=== PATIENT | male | born 1950 | race Caucasian/White ===

== ENCOUNTER 2018-06-18 13:15 | Emergency (ER) | payer OTHER ==
[~2018-06-18] VITALS: Ht 177.8 cm; Wt 72.6 kg
[~2018-06-18 13:15] MED LIST: ALBU4; Keflex500 MG PO; LEVO750 PO; LEVSOD100 PO; Percocet 5-3251 EACH PO
[2018-06-18 14:11] LABS: BASOPHILS ABSOLUTE AUTO 0.08 K/mm3 (0.00-0.23); BASOPHILS PERCENT AUTO 1 % (0-2); EOSINOPHILS ABSOLUTE AUTO 0.26 K/mm3 (0.00-0.68); EOSINOPHILS PERCENT AUTO 3 % (0-6); Hematocrit 44.4 % (37.0-53.0); Hemoglobin 14.6 g/dL (13.5-17.5); IMMATURE GRAN ABSOLUTE AUTO 0.01 K/mm3 (0.00-0.10); IMMATURE GRAN PERCENT AUTO 0 % (0-1); LYMPHOCYTES ABSOLUTE AUTO 0.53 K/mm3 (0.84-5.20); LYMPHOCYTES PERCENT AUTO 6 % (21-46); MONOCYTES ABSOLUTE AUTO 0.34 K/mm3 (0.16-1.47); MONOCYTES PERCENT AUTO 4 % (4-13); Mean Corpuscular HGB Conc 32.9 g/dL (31.5-36.5); Mean Corpuscular Volume 88 fL (80-100); Mean Platelet Volume 9.9 fL (9.1-12.4); NEUTROPHILS ABSOLUTE AUTO 7.51 K/mm3 (1.96-9.15); NEUTROPHILS PERCENT AUTO 86 % (41-73); Platelet Count 262 K/mm3 (150-400); RDW Coefficient Variation 13.5 % (11.7-14.2); RDW Standard Deviation 43.4 fL (35.1-46.3); Red Blood Cell Count 5.04 M/mm3 (4.30-5.90); White Blood Cell Count 8.73 K/mm3 (4.00-11.30)
[2018-06-18 14:38] LABS: Alanine Aminotransfer (ALT/SGP 13 U/L (12-78); Albumin, Blood 3.5 g/dL (3.4-5.0); Albumin/Globulin Ratio 0.8 (0.8-1.8); Alk Phos 68 U/L (50-136); Anion Gap 7 mmol/L (6-16); Aspartate Aminotrans (AST/SGOT 8 U/L (12-37); Bilirubin, Total 0.5 mg/dL (0.1-1.0); Blood Urea Nitrogen 11 mg/dL (8-24); Bun/Creatinine Ratio 16.4 (12.0-20.0); CO2, Blood 27 mmol/L (21-32); Calcium, Blood 8.7 mg/dL (8.5-10.1); Chloride, Blood 106 mmol/L (98-108); Creatinine, Blood 0.67 mg/dL (0.60-1.20); Globulin, Blood 4.2 g/dL (2.2-4.0); Glomerular Filtration Rate >60 (60-); Glucose, Blood 101 mg/dL (70-99); Potassium, Blood 4.3 mmol/L (3.5-5.5); Sodium, Blood 140 mmol/L (136-145); Total Protein, Blood 7.7 g/dL (6.4-8.2)
[2018-06-18] MEDS ORDERED: THYR60 PO (17:09)
[2018-06-18] MEDS ORDERED: Zithromax250 MG PO (18:13)
== END 2018-06-18 18:36 | disposition home or self-care (01) ==
LOC: ER 13:15
PROVIDERS: Physician Assistant
DX: J98.19 Other pulmonary collapse (principal); Z79.899 Other long term (current) drug therapy; Z87.891 Personal history of nicotine dependence
CPT/HCPCS: 71046; 80053; 84145; 85025; 93005; 93010; 99284-25

== ENCOUNTER 2018-12-15 09:51 | Inpatient (IN) | payer MEDICARE ==
[~2018-12-15] VITALS: Ht 180.3 cm; Wt 70.8 kg
[~2018-12-15 09:51] MED LIST changes: +THYR60 PO; +Zithromax250 MG PO
[2018-12-15 10:44] LABS: Hematocrit 37.1 % (37.0-53.0); Hemoglobin 11.9 g/dL (13.5-17.5); Mean Corpuscular HGB 33.3 pg (26.0-34.0); Mean Corpuscular HGB Conc 32.1 g/dL (31.5-36.5); Mean Platelet Volume 9.8 fL (9.1-12.4); Platelet Count 171 K/mm3 (150-400); RDW Coefficient Variation 16.4 % (11.7-14.2); RDW Standard Deviation 64.3 fL (35.1-46.3); Red Blood Cell Count 3.57 M/mm3 (4.30-5.90); White Blood Cell Count 17.05 K/mm3 (4.00-11.30)
[2018-12-15 10:53] LABS: Alanine Aminotransfer (ALT/SGP 26 U/L (12-78); Albumin, Blood 2.3 g/dL (3.4-5.0); Albumin/Globulin Ratio 0.5 (0.8-1.8); Alk Phos 167 U/L (50-136); Anion Gap 7 mmol/L (6-16); Aspartate Aminotrans (AST/SGOT 17 U/L (12-37); Bilirubin, Total 0.8 mg/dL (0.1-1.0); Blood Urea Nitrogen 16 mg/dL (8-24); Bun/Creatinine Ratio 23.7 (12.0-20.0); CO2, Blood 35 mmol/L (21-32); Calcium, Blood 8.7 mg/dL (8.5-10.1); Chloride, Blood 99 mmol/L (98-108); Creatinine, Blood 0.68 mg/dL (0.60-1.20); Globulin, Blood 4.5 g/dL (2.2-4.0); Glomerular Filtration Rate >60 (60-); Glucose, Blood 138 mg/dL (70-99); Potassium, Blood 3.2 mmol/L (3.5-5.5); Sodium, Blood 141 mmol/L (136-145); Total Protein, Blood 6.8 g/dL (6.4-8.2)
[2018-12-15 10:58] LABS: Mean Corpuscular Volume 104 fL (80-100)
--- NOTE | 2018-12-15 11:23 | NUR ---
Patient is lying in bed and alert. Patient struggles to speak and only says a few words at a time. Patient affirmed that he would like a prayer. I gladly provided prayer. I sat with patient and provided a calming presence. I also went out to the waiting room and sat with patient's spouse, Nila. I had her go through the events of the morning that led to 12-17- being called and what communication she had from the hospital staff to this moment. She had heard nothing and is axnious to be with her . I go back to patient's room and ask if it is ok to bring Nila to patient and it is affirmed. I bring spouse and their daughter pat back to patient. They thank me for the time and care.
[2018-12-15 11:26] LABS: BAND PERCENT MAN 20 % (0-8); BASOPHILS PERCENT MAN 0 % (0-2); EOSINOPHILS PERCENT MAN 0 % (0-6); LYMPHOCYTES ABSOLUTE MAN 0.68 K/mm3 (0.84-5.20); LYMPHOCYTES PERCENT MAN 4 % (21-46); MONOCYTES PERCENT MAN 0 % (4-13); NEUTROPHILS ABSOLUTE MAN 16.36 K/mm3 (1.96-9.15); SEG NEUTROPHILS PERCENT MAN 76 % (41-73); TOTAL CELLS COUNTED 100
[2018-12-15 11:37] LABS: International Normalized Ratio 1.21; Prothrombin Time Results 12.6 Sec (9.7-11.5)
[2018-12-15] MEDS ORDERED: ARMOUR THYROID PO (13:53)
[2018-12-15] MEDS ORDERED: Sleep Aid25 M1 PO (13:54)
[2018-12-15] MEDS ORDERED: FORMULA 303 PO (13:54)
[2018-12-15] MEDS ORDERED: THERA1 EACH PO (13:54)
--- NOTE | 2018-12-15 14:02 | NUR ---
TRANSFERED FROM ER TO [facility] SAT DOWN TO 85 PLACED ON 2 LITERS O2 SAT CLIMBING AND CURRENTLY AT 90%. History, Chart, Medications and Allergies reviewed before start of procedure.Patient confirms NPO status and agrees with scheduled surgery. History, Chart, Medications and Allergies reviewed before start of procedure.
--- NOTE | 2018-12-15 14:20 | NUR ---
RAISED 02 UP TO 4 LITERS SAT HOVERING AT 90% PRIOR TO INCREASE
--- NOTE | 2018-12-15 15:39 | NUR ---
12/15/18 1539 Selam Boyd PT ON SCHEDULED ANTIBIOTIC
--- NOTE | 2018-12-15 18:27 | NUR ---
PARTIAL REPORT FROM GALE PAZ. PT WILL BE COMING TO ICU 13
--- NOTE | 2018-12-15 18:52 | NUR ---
ADMITTED TO ICU 13 AT 1840. REPORT FROM ANESTHESIOLOGIST.
--- NOTE | 2018-12-15 19:01 | NUR ---
LEFT MSG RO DR. LACY
--- NOTE | 2018-12-15 19:15 | NUR ---
ASSUMED PT CARE FROM GALE VENTURA PT RECENTLY ARRIVED FROM OR S/P COLECTOMY SECONDARY TO PERFORATED BOWEL R/T DIVERTICULITIS. PT REMAINS UNRESPONSIVE R/T SEDATIVE MEDICATIONS ADMINISTERED IN OR. PT IS INTUBATED WITH VENT SETTINGS: AC 14, TV 450, PEEP 8, FIO2 100%. PER REPORT PT HAS BEEN GETTING PROGRESSIVELY WORSE WITH BLOOD PRESSURE; NEOSYNEPHRINE WAS USED DURING SURGERY. NO FLUIDS CURRENTLY RUNNING CONFLICTING FLUIDS NEEDED CLARIFIED BY TEACHER BALLET WHO HAD BEEN CONSULTED ON CASE. NO FAMILY AT BEDSIDE. PT'S BLOOD PRESSURE QUICKLY STARTED TO DROP AND PT WAS VERY HYPOTENSIVE. DR. GARCIA CALLED TO BEDSIDE WHO ORDERED TO RESTART NEOSYNEPHRINE VIA PERIPHERAL WHILE WE CALLED FOR CONSENT FOR CENTRAL LINE PLACEMENT.
--- NOTE | 2018-12-15 19:22 | NUR ---
DR. GARCIA ON THE PHONE WITH OBTAINING VERBAL CONSENT FOR CENRAL LINE PLACEMENT
--- NOTE | 2018-12-15 19:28 | NUR ---
DR. GARCIA AT BEDSIDE PREPPING FOR CENRAL LINE PLACEMENT
--- NOTE | 2018-12-15 19:53 | NUR ---
CENTRAL LINE PROCEDURE COMPLETE; CXR ORDERED
--- NOTE | 2018-12-15 19:59 | NUR ---
CXR COMPLETE; PENDING CONFIRMATION BY DR. GARCIA
--- NOTE | 2018-12-15 20:48 | NUR ---
DR. GARCIA CHECKED CXR AND PULLED CENTRAL LINE OUT BY 1CM AND CONFIRMED THAT LINE WAS OKAY TO USE.
[2018-12-15 21:00] LABS: Source, Urine Clean Catch
[2018-12-15 21:03] LABS: Bilirubin, Urine Neg (Neg); Blood, Urine 1+ (Neg); Glucose Qualitative, Urine Neg (Neg); Ketones, Urine Neg (Neg); Leukocyte Esterase, Urine Neg (Neg); Nitrite, Urine Neg (Neg); Protein, Urine 1+ (Neg); Specific Gravity, Urine 1.005 (1.003-1.022); Urobilinogen, Urine NORM (Normal)
[2018-12-15 21:06] LABS: Appearance, Urine Clear (Clear); Color, Urine Yellow (P-Yellow)
[2018-12-15 21:13] LABS: Bacteria Rare /hpf; Red Blood Cells, Urine 0-2 /hpf (0-2); Squamous Epithelial Cells Rare /hpf (Few); White Blood Cells, Urine Rare /hpf (0-5)
[2018-12-15 21:19] LABS: Hematocrit 35.2 % (37.0-53.0); Hemoglobin 11.4 g/dL (13.5-17.5); Mean Corpuscular HGB 33.4 pg (26.0-34.0); Mean Corpuscular HGB Conc 32.4 g/dL (31.5-36.5); Mean Corpuscular Volume 103 fL (80-100); Platelet Count 160 K/mm3 (150-400); RDW Coefficient Variation 16.8 % (11.7-14.2); RDW Standard Deviation 64.3 fL (35.1-46.3); Red Blood Cell Count 3.41 M/mm3 (4.30-5.90)
[2018-12-15 21:35] LABS: Anion Gap 9 mmol/L (6-16); Blood Urea Nitrogen 18 mg/dL (8-24); Bun/Creatinine Ratio 23.2 (12.0-20.0); CO2, Blood 30 mmol/L (21-32); Calcium, Blood 7.4 mg/dL (8.5-10.1); Chloride, Blood 106 mmol/L (98-108); Creatinine, Blood 0.78 mg/dL (0.60-1.20); Glomerular Filtration Rate >60 (60-); Glucose, Blood 156 mg/dL (70-99); Potassium, Blood 3.6 mmol/L (3.5-5.5); Sodium, Blood 145 mmol/L (136-145)
[2018-12-15 21:58] LABS: BAND PERCENT MAN 10 % (0-8); BASOPHILS PERCENT MAN 0 % (0-2); EOSINOPHILS PERCENT MAN 0 % (0-6); LYMPHOCYTES ABSOLUTE MAN 0.24 K/mm3 (0.84-5.20); LYMPHOCYTES PERCENT MAN 1 % (21-46); MONOCYTES ABSOLUTE MAN 0.24 K/mm3 (0.16-1.47); MONOCYTES PERCENT MAN 1 % (4-13); SEG NEUTROPHILS PERCENT MAN 88 % (41-73); TOTAL CELLS COUNTED 100
--- NOTE | 2018-12-15 22:06 | NUR ---
DR. GARCIA CALLED FOR AN UPDATE ON PT. NEW ORDERS TO STOP NEOSYNEPHRINE AND START LEVOPHED; TITRATE TO EFFECT TO KEEP MAP GREATER THAN 65.
[2018-12-16 03:56] LABS: BASOPHILS ABSOLUTE AUTO 0.04 K/mm3 (0.00-0.23); BASOPHILS PERCENT AUTO 0 % (0-2); Hematocrit 33.6 % (37.0-53.0); Hemoglobin 10.7 g/dL (13.5-17.5); LYMPHOCYTES PERCENT AUTO 2 % (21-46); MONOCYTES ABSOLUTE AUTO 0.37 K/mm3 (0.16-1.47); MONOCYTES PERCENT AUTO 2 % (4-13); Mean Corpuscular HGB 32.8 pg (26.0-34.0); Mean Corpuscular HGB Conc 31.8 g/dL (31.5-36.5); Mean Corpuscular Volume 103 fL (80-100); Mean Platelet Volume 10.3 fL (9.1-12.4); Platelet Count 154 K/mm3 (150-400); RDW Coefficient Variation 16.8 % (11.7-14.2); RDW Standard Deviation 64.6 fL (35.1-46.3); Red Blood Cell Count 3.26 M/mm3 (4.30-5.90); White Blood Cell Count 24.88 K/mm3 (4.00-11.30)
[2018-12-16 04:08] LABS: EOSINOPHILS PERCENT AUTO 0 % (0-6); IMMATURE GRAN ABSOLUTE AUTO 0.16 K/mm3 (0.00-0.10); IMMATURE GRAN PERCENT AUTO 1 % (0-1); NEUTROPHILS ABSOLUTE AUTO 23.91 K/mm3 (1.96-9.15); NEUTROPHILS PERCENT AUTO 96 % (41-73)
[2018-12-16 04:32] LABS: Alanine Aminotransfer (ALT/SGP 16 U/L (12-78); Albumin, Blood 1.5 g/dL (3.4-5.0); Albumin/Globulin Ratio 0.4 (0.8-1.8); Alk Phos 99 U/L (50-136); Anion Gap 6 mmol/L (6-16); Aspartate Aminotrans (AST/SGOT 13 U/L (12-37); Bilirubin, Total 0.6 mg/dL (0.1-1.0); Blood Urea Nitrogen 20 mg/dL (8-24); Bun/Creatinine Ratio 19.8 (12.0-20.0); CO2, Blood 30 mmol/L (21-32); Calcium, Blood 7.1 mg/dL (8.5-10.1); Chloride, Blood 107 mmol/L (98-108); Creatinine, Blood 1.01 mg/dL (0.60-1.20); Globulin, Blood 3.6 g/dL (2.2-4.0); Glomerular Filtration Rate >60 (60-); Glucose, Blood 171 mg/dL (70-99); Magnesium, Blood 1.5 mg/dL (1.6-2.4); Phosphorus, Blood 3.6 mg/dL (2.5-4.9); Potassium, Blood 3.6 mmol/L (3.5-5.5); Sodium, Blood 143 mmol/L (136-145); Total Protein, Blood 5.1 g/dL (6.4-8.2); Triglycerides 97 mg/dL (30-160)
--- NOTE | 2018-12-16 05:16 | NUR ---
SBT/SEDATION VACATION PT TITRATED DOWNT O 10MCG/KG/MIN ON THE PROPOFOL. VENT SETTINGS SWITCHED TO PRESSURE SUPPORT OF 10/22 WITH FIO2 40%. PT TOLERATED SBT WELL. NO DISTRESS NOTED, BLOOD PRESSURES STABLE WITH LEVOPHED TITRATED DOWN TO 8MCG/MIN, AND PT MANAGED TO PULL TIDAL VOLUMES GREATER THAN 300 THROUGHOUT. PT LEFT ON PRESSURE SUPPORT / AFTER SBT; HOWEVER, HE ONLY TOLERATED FOR A SHORT WHILE LONGER HE NODDED HIS HEAD "YES" TO BEING FATIGUED.
[2018-12-16 05:21] LABS: BAND PERCENT MAN 17 % (0-8); BASOPHILS PERCENT MAN 0 % (0-2); EOSINOPHILS PERCENT MAN 0 % (0-6); LYMPHOCYTES ABSOLUTE MAN 0.49 K/mm3 (0.84-5.20); LYMPHOCYTES PERCENT MAN 2 % (21-46); MONOCYTES ABSOLUTE MAN 0.24 K/mm3 (0.16-1.47); MONOCYTES PERCENT MAN 1 % (4-13); NEUTROPHILS ABSOLUTE MAN 24.13 K/mm3 (1.96-9.15); SEG NEUTROPHILS PERCENT MAN 80 % (41-73); TOTAL CELLS COUNTED 100
--- NOTE | 2018-12-16 06:14 | NUR ---
END OF SHIFT SUMMARY PT REMAINS INTUBATED AND SEDATED; VENT SETTINGS: AC 14, TV 450, PEEP 7, FIO2 40%. PROPOFOL TITRATED BACK TO 40MCG/KG/MIN AFTER SBT DUE TO PT BEING WIDE AWAKE AND UNCOMFORTABLE WITH PROPOFOL AT 30MCG/KG/MIN. PT IS ABLE TO OPEN EYES TO VERBAL STIMULI AND FOLLOW COMMANDS ADEQUATELY. PT HAS DENIED PAIN ALL SHIFT BY NODDING HIS HEAD "NO" WHEN ASKED. WOUND VAC REMAINS PATENT AND INTACT TO ABDOMEN. COLOSTOMY HASN'T HAD ANY OUTPUT THIS SHIFT, BUT STOMA REMAINS PINK AND MOIST. LEVOPHED IS CURRENTLY AT 8MCG/MIN. NS WITH 20MEQ KCL INFUSING AT 100MLS/HR. PT APPEARS COMFORTABLE AT THIS TIME; WILL CONTINUE TO MONITOR UNTIL REPORT IS HANDED OFF TO ONCOMING RN.
--- NOTE | 2018-12-16 09:51 | NUR ---
PT ASSESSED AT 0715. PT SEDATED ON 40MCG PROPOFOL FOR [facility]. PT GRIMACES AND MOVES HEAD ON SEDATION; SEDATION VAC GIVEN. PT AWOKE WITHIN 15MIN; ABLE TO FOLLOW COMMANDS AND NOD HEAD APPROPRIATELY; REACHED FRO ETT TUBE SEVERAL TIMES. DENIED PAIN W HEAD NOD BUT GRIMACES W ANY MOVEMENT AND LIGHT PALP. DR HALE IN AT 0800 TO ASSESS PT. OKAY TO START LOVENOX THIS AFTERNOON. LEAVE NG IN UNLESS PT ON VENT FOR MORE THAN 2-3 DAYS; THEN MAY SWITCH TO OG; OTHERWISE LEAVE NG IN. MIDLINE ABD INCISION COVERED W PREVENA WOUND VAC; NO DRAINAGE NOTED. LEFT MID COLOSTOMY BAG W SCANT SS FLUID, STOMA PINK AND HEALTHY APPEARING. BT'S ABSENT TO RLQ ONLY, OTHERWISE ACTIVE. LEVOPHED AT 8MCG. DR GARCIA IN THIS AM WELL DR SLOAN; SEE NEW ORDERS. PT TO STAY ON VENT TODAY.
--- NOTE | 2018-12-16 15:02 | NUR ---
EMELYN LASSITER PLACED UNDER SCD'S D/T EDEMA. LEVOPHED INCREASED TO 10MCG AFTER A FENT DOSE FOR PAIN. RECTAL TEMP PROBE PLACED EARLIER WITH A TMAX OF 100. DR GARCIA SPOKE WITH PT'S AND DAUGHTER; UPDATING THEM. PT REMAINS SEDATED ON 40MCG PROPOFOL. NO OUTPUT FROM COLOSTOMY NOTED.
--- NOTE | 2018-12-16 16:45 | NUR ---
INITIAL ASSESSMENT PATIENT INTUBATED AND SEDATED. PATIENT RESPONDING TO PAINFUL STIMULI. RECTAL TUBE IN PLACE SHOWING TEMP OF 99.7 DEGREES FAHRENHEIT. NO SIGNS OF PAIN NOTED. PATIENT SATTING 90% AND GREATER ON VENT SETTINGS OF AC 14, TV 450, PEEP 5, 35% FIO2. LUNGS CLEAR IN UPPER LOBES, DIMINISHED IN LOWER LOBES. BLOODY SPUTUM BEING SUCTIONED FROM ETT. PATIENT IN ST, HR IN THE LOW 100S. SBP 80S TO 90S ON LEVOPHED DRIP. ANTIEMBOLISM STOCKINGS IN PLACE. ABDOMEN TENDER WITH HYPOACTIVE BS. NG TO LIS, DRAINING BILE. COLOSTOMY TO LUQ- NO STOOL IN BAG. STOMA PINK AND BEEFY. VENTRAL WOUND VAC IN PLACE- NO DRAINAGE COLLECTED. JEAN IN PLACE DRAINING DARK YELLOW TO GREEN, CLOUDY URINE. PATIENT HAS SCATTERED BRUISING T/O. 1+ EDEMA TO BLES. 2+ EDEMA TO BILAT FEET. COCCYX REDDENED. SCAR TO R INNER THIGH. TPN STARTED AT 30 MLS/ HOUR, PROPOFOL AT 40 MCG/ KG/ MINUTE, LEVOPHED AT 10 MCG/ MINUTE. BED LOW, CALL LIGHT IN REACH. WILL CONTINUE TO MONITOR T/O SHIFT.
--- NOTE | 2018-12-16 18:38 | NUR ---
SHIFT SUMMARY PATIENT REMAINS UNCHANGED FROM THIS NURSE'S INITIAL ASSESSMENT SHORT TIME AGO. VITAL SIGNS STABLE. NO SIGNS OF PAIN. TPN INFUSING AT 55 MLS/ HOUR, PROPOFOL AT 40 MCG/ KG/ MINUTE AND LEVOPHED AT 10 MCG/ MINUTE. WILL BE GIVING REPORT TO ONCOMING SULFUR CHLORIDE OPERATOR NURSE SHORTLY.
--- NOTE | 2018-12-16 19:03 | NUR ---
ASSUMED PT CARE FROM GALE BETANCOURT. PT REMAINS INTUBATED AND SEDATED. PROPOFOL CURRENTLY AT 40MCG/KG/MIN. VENT SETTINGS: AC 14, TV 450, PEEP 5, FIO2 35%. TPN INFUSING AT GOAL OF 55MLS/HR. LEVOPHED AT 10MCG/MIN. AND NS TKO WITH ANTIBIOTICS. NG CONNECTED TO LOW INTERMITTENT SUCTION WITH GREEN BILE NOTED IN CANNISTER. IT APPEARS PT CONTINUES WITH MODERATE AMOUNTS OF THIN BLOOD TINGED SPUTUM. CENTRAL LINE TO RIGHT IJ REMAINS INTACT AND PATENT. JEAN CATHETER DRAINING TO GRAVITY. PT'S BILATERAL ARMS AND LEGS/FEET ARE EDEMATOUS, BUT ELEVATED ON PILLOWS. PT APPEARS COMFORTABLE AT THIS TIME; FAMILY AT BEDSIDE.
[2018-12-17 03:24] LABS: Hematocrit 27.5 % (37.0-53.0); Hemoglobin 8.8 g/dL (13.5-17.5); Mean Corpuscular HGB 32.8 pg (26.0-34.0); Mean Corpuscular Volume 103 fL (80-100); Mean Platelet Volume 10.7 fL (9.1-12.4); Platelet Count 119 K/mm3 (150-400); RDW Standard Deviation 64.2 fL (35.1-46.3); Red Blood Cell Count 2.68 M/mm3 (4.30-5.90); White Blood Cell Count 26.29 K/mm3 (4.00-11.30)
[2018-12-17 03:41] LABS: BAND PERCENT MAN 11 % (0-8); BASOPHILS PERCENT MAN 0 % (0-2); EOSINOPHILS PERCENT MAN 0 % (0-6); LYMPHOCYTES ABSOLUTE MAN 0.26 K/mm3 (0.84-5.20); LYMPHOCYTES PERCENT MAN 1 % (21-46); MONOCYTES ABSOLUTE MAN 0.52 K/mm3 (0.16-1.47); MONOCYTES PERCENT MAN 2 % (4-13); SEG NEUTROPHILS PERCENT MAN 86 % (41-73); TOTAL CELLS COUNTED 100
[2018-12-17 03:43] LABS: Alanine Aminotransfer (ALT/SGP 17 U/L (12-78); Albumin, Blood 1.4 g/dL (3.4-5.0); Albumin/Globulin Ratio 0.4 (0.8-1.8); Alk Phos 92 U/L (50-136); Anion Gap 6 mmol/L (6-16); Aspartate Aminotrans (AST/SGOT 10 U/L (12-37); Bilirubin, Total 0.4 mg/dL (0.1-1.0); Blood Urea Nitrogen 21 mg/dL (8-24); Bun/Creatinine Ratio 26.6 (12.0-20.0); CO2, Blood 31 mmol/L (21-32); Calcium, Blood 7.4 mg/dL (8.5-10.1); Chloride, Blood 112 mmol/L (98-108); Creatinine, Blood 0.79 mg/dL (0.60-1.20); Globulin, Blood 3.5 g/dL (2.2-4.0); Glomerular Filtration Rate >60 (60-); Glucose, Blood 229 mg/dL (70-99); Magnesium, Blood 1.8 mg/dL (1.6-2.4); Phosphorus, Blood 2.8 mg/dL (2.5-4.9); Potassium, Blood 3.5 mmol/L (3.5-5.5); Sodium, Blood 149 mmol/L (136-145); Total Protein, Blood 4.9 g/dL (6.4-8.2); Triglycerides 185 mg/dL (30-160)
--- NOTE | 2018-12-17 04:35 | NUR ---
SEDATION VACATION/SBT PROPOFOL TITRATED DOWN TO 10MCG/KG/MIN AT 0315. PT ABLE TO OPEN EYES SPONTANEOUSLY AND FOLLOWS VERBAL COMMANDS APPROPRIATELY. PT NODDED HEAD TO GENERALIZED PAIN; MEDICATED WITH 25MCG OF FENTANYL, WHICH WAS EFFECTIVE. SWITCHED TO PRESSURE SUPPORT 10/20 WITH FIO2 35%. RR 18-22, TV GREATER THAN 300 AND VITAL SIGNS REMAINED STABLE WITH LEVOPHED AT 9MCG/MIN. PT REMAINED ON PRESSURE SUPPORT POST TRIAL AND HAS BEEN TOLERATING ADEQUATELY.
--- NOTE | 2018-12-17 05:33 | NUR ---
END OF SHIFT SUMMARY PT HAS REMAINED INTUBATED AND SEDATED. VENT SETTINGS THROUGH MOST OF NIGHT WERE AC 14, TV 450, PEEP 5, FIO2 35%. PROPOFOL AT 40MCG/KG/MIN MOST OF NIGHT UP UNTIL SEDATION VACATION, SEE NOTE. LUNG SOUNDS REMAIN CLEAR, BUT DIMINISHED T/O TO RIGHT MIDDLE AND LOWER LOBES. PT HAS REMAINED IN SINUS TACH WITH HR 100-120'S. ABDOMEN REMAINS TENDER WITH WOUND VAC PATENT AND INTACT; HYPOACTIVE BOWEL TONES TO UPPER QUADRANTS WITH ABSENT TONES TO BILATERAL LOWER QUADRANTS. COLOSTOMY REMAINS WITH NO OUTPUT OR GAS TO POUCH. NG HOOKED TO LOW INTERMITTENT SUCTION WITH GREEN BILE NOTED IN CANNISTER. JEAN CATH REMAINS PATENT AND DRAINING TO GRAVITY; CLEAR YELLOW WITH GREEN TINGE NOTED TO URINE. PT REMAINS EDEMATOUS TO BUE'S AND BLE'S. PT REMAINS ON PRESSURE SUPPORT /; FIO2 35% POST WEAN. WILL CONTINUE TO MONITOR UNTIL REPORT IS HANDED OFF TO ONCOMING RN.
--- NOTE | 2018-12-17 09:51 | NUR ---
PT ASSESSED AT 0730 THIS AM. PT AWAKE ON PROPOFOL AT 10MCG FOR MECH VENT. PT DENIED C/O DISCOMFORT. PT VISIABLY UPSET; TEARS IN EYES, RESTRAINED HAND "SHOOED" ME AWAY. PT EDUCATED AND COMFORTED WITH MINIMAL EFFECT. PT ON PS [address] GARCIA IN AT 0800. PT PLACED ON SPONT W PS OF 0; PT TOLERATED WELL AND EXTUBATED AT 0915 ON 3L O2 VIA N/C. PT DEMANDED WATER AND BECAME ANGRY HITTING FIST ON BED WHEN EXPLINATION OF WHY WATER COULDNT BE GIVEN YET. FIRM BOUNDRIES SET WITH EXPLANATION/COMPASSION. PT REMAINS TEARFUL. DAUGHTER AT BEDSIDE NOW. NG REMAINS TO LIS, BT'S HYPOACTIVE TO ABSENT, COLOSTOMY BAG W/O STOOL/EMPTY, STOMA PINK AND HEALTHY APPEARING. LEVOPHED AT 8MCG WILL TITRATE DOWN TOLERATED TO KEEP MAP >65. DR HALE IN THIS AM TO ASSESS PT WELL.
--- NOTE | 2018-12-17 15:03 | NUR ---
PT IN SLIGHTLY BETTER SPIRITS;LESS IRRITABLE. APPEARS TO BE STOIC, DECLINES PAIN MEDS AT TIMES, WHEN QUESTIONED FURTHER HE WILL ADMIT THAT HIS PAIN IS 9+/10 TO ABD AND BOTTOM. PT WAS ALLOWED ICE CHIPS AND POPSICLES PER DR HALE. POSSIBLE SILENT ASPIRATION OF POPSICLE. PT HAS VERY WEAK COUGH. IS AND FLUTTER VALVE GIVEN WITH INSTRUCTIONS. POPSICLES TO BE HELD UNTIL PT HAS STRONGER COUGH; THIS EXPLAINED TO PT, PT MOTIVATED TO USE IS/FLUTTER. LEVOPHED GTT OFF AT 1300; BP REMAINS STABLE OF LEVAPHED. D5W STARTED AT 75CC FOR INCREASED NA++.
--- NOTE | 2018-12-17 16:00 | NUR ---
PALLIATIVE CARE IN TO SEE PTS . PTS TEARFUL, REQUESTS MORE INFORMATION REGARDING ADVANCE DIRECTIVE/POLST.
--- NOTE | 2018-12-17 16:58 | NUR ---
PT W C/O SOB AROUND 1530. LUNGS COARSE, PT UNABLE TO COUGH EFFICIANTLY, SATS 90-91% ON 3L, HR 120. RT CALLED TO BEDSIDE. PT NT SX'D DOWN RIGHT NARE. PT TOLERATED WELL WITH LITTLE GAG. LARGE AMT OF ORANGE/PINK SPUTUM SUCTIONED. PT DENIES SOB AFTER SX'ING AND SATS INCREASED TO 93%. DR GARCIA CALLED AND GIVEN UPDATE; WILL HOLD PO FOR TODAY. DR GARCIA NOTIFIED OF POSITIVE BLOOD CX WELL; TIFFANYO STARTED. PT SOMEWHAT CONFUSED. THOUGHT HE WAS IN [place], LOOKED AT ME LATER AND STATED IN A CONCERNED VOICE THAT HE WAS NOT IN THE RIGHT PLACE. PT REORIENTED AND SEEMED SATISFIED WITH INFORMATION.
--- NOTE | 2018-12-17 16:59 | NUR ---
Initial Visit: Pt is alert, eating a popsicle. He denies pain. He doesn't want to discuss hospice. Later Entry: Nurse called to have palliative care come see pt's family. Pt is in the room by himself on arrival, his family is in the ICU waiting room. Reviewed current illness with Nila, pt's , and Aria, pt's daughter. They are concerned about pt. Both are somewhat tearful. Reviewed advance directive and POLST forms. Encouraged to discuss advance directive. They do not know if he would like to fight this a while longer or if he would want hospice services at any time. 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 Since he stopped working, pt has been increasingly irritable and depressed. Offered to help them have conversation with the pt. They believe that he would respond better if they presented it to him themselves. Pt's son gets into town tomorrow and that would be a good time to talk. Card provided, POLST and advance directive left for them to review and present to pt for discussion. No other concerns at this time. Will remain available.
--- NOTE | 2018-12-17 19:12 | NUR ---
ASSUMED PT CARE FROM STEPHANIE RN AND DAVID RN PT SITTING UPRIGHT IN BED RESTING. PER REPORT PT DIDN'T SLEEP MUCH TODAY, BUT DOZED OFF AND ON T/O THE DAY. PT OPENED EYES TO VERBAL STIMULI AND WAS ABLE TO NOD HEAD YES/NO TO QUESTIONS. PT APPEARS ALERT AND ORIENTED TO SELF, SITUATION, BUT CONFUSED TO PLACE/TIME. VERY FLAT EFFECT; HOWEVER, PER REPORT PT HAS BEEN VERY DEPRESSED AND IRRITABLE T/O MOST OF SHIFT. PER PALLIATIVE NOTE IT APPEARS THIS HAS BEEN PT'S NEW BASELINE SINCE HE HASN'T BEEN ABLE TO WORK ANY LONGER SECONDARY TO HIS DISEASE PROCESSES. PT NOTED TO BE VERY SOFT SPOKEN AND PREFERS TO USE HAND GESTURES INSTEAD OF VERBALIZING NEEDS; WILL ATTEMPT TO UNDERSTAND PT'S NEEDS AND ENCOURAGE HIM TO VERBALIZE NEEDS NEEDED. NO FAMILY AT BEDSIDE AT THIS TIME. PT STATES HE IS VERY TIRED AND WOULD JUST LIKE TO REST AT THIS TIME. CALL LIGHT LEFT WITHIN REACH, BUT WILL CONTINUE FREQUENT VISUAL CHECKS TO ENSURE NEEDS ARE BEING MET. CENTRAL LINE REMAINS TO RIGHT IJ; TPN INFUSING AT 55MLS/HR, D5W AT 75ML/HR, LEVOPHED ON STANDBY, AND ZOSYN INFUSING AT THIS TIME. PT DENIES ANY PAIN. WOUND VAC APPEARS INTACT AND PATENT. COLOSTOMY INTACT WITH SCANT AMOUNT OF FORMED BROWN STOOL THAT APPEARS SOFT IN TEXTURE; STOMA IS PINK AND MOIST. BOWEL TONES ARE ACTIVE X3 QUADRANTS; ABSENT TO LLQ. JEAN CATHETER IS PATENT AND DRAINING TO GRAVITY; CLEAR, YELLOW. PT REMAINS EDEMATOUS WITH EXTREMITIES ELEVATED ON PILLOWS. PT IS VERY WEAK, BUT ABLE TO MOVE ALL EXTREMITIES. NG TUBE CONTINUES TO LOW INTERMITTENT SUCTION WITH GREEN, BILE NOTED TO CANNISTER. DENIES ANY PAIN AT THIS TIME AND JUST STATES THAT HE IS UNCOMFORTABLE AND "ACHY" DUE TO BEING IN BED FOR AN EXTENDED PERIOD OF TIME. PT REQUESTED WATER; EXPLAINED HIGH RISK OF CHOKING AND ASPIRATION SECONDARY TO CHOKING EVENT THAT TOOK PLACE WITH POPSICLE ON DAY SHIFT. EDUCATED PT THAT IT IS NORMAL AFTER EXTUBATION TO BE MORE WEAK WITH CLEARING SECRETIONS AND SWALLOWING; HOWEVER, WE WANT TO CONTINUE MAKING PROGRESS AND NOT END BACK UP INTUBATED. PT VERBALIZED UNDERSTANDING AND WAS AGREEABLE TO MOUTH SWAB. ST TO EVALUATE AND TREAT TOMORROW PER REPORT. WILL CONTINUE TO MONITOR AND NOTIFY PHYSICIAN OF ANY SIGNIFICANT CHANGES.
--- NOTE | 2018-12-17 20:40 | NUR ---
TOOTH FILLING AFTER PROVIDING ORAL CARE AND MOUTH SWABS PT PULLED OUT A SMALL UNKOWN PARTICLE FROM HIS MOUTH. UPON OBSERVATION OF UNKNOWN PARTICLE IT WAS NOTED TO BE A FILLING FROM PT'S BACK LEFT MOLAR. PT DENIED PAIN, WELL ANY SORT OF SENSITIVITY.
[2018-12-18 03:17] LABS: Hematocrit 24.6 % (37.0-53.0); Hemoglobin 7.7 g/dL (13.5-17.5); Mean Corpuscular HGB Conc 31.3 g/dL (31.5-36.5); Mean Platelet Volume 10.2 fL (9.1-12.4); Platelet Count 98 K/mm3 (150-400); RDW Standard Deviation 66.7 fL (35.1-46.3); Red Blood Cell Count 2.33 M/mm3 (4.30-5.90); White Blood Cell Count 20.96 K/mm3 (4.00-11.30)
[2018-12-18 03:18] LABS: Mean Corpuscular Volume 106 fL (80-100)
[2018-12-18 03:30] LABS: Anion Gap 6 mmol/L (6-16); Blood Urea Nitrogen 20 mg/dL (8-24); Bun/Creatinine Ratio 30.2 (12.0-20.0); CO2, Blood 32 mmol/L (21-32); Calcium, Blood 7.5 mg/dL (8.5-10.1); Chloride, Blood 113 mmol/L (98-108); Creatinine, Blood 0.66 mg/dL (0.60-1.20); Glomerular Filtration Rate >60 (60-); Glucose, Blood 159 mg/dL (70-99); Phosphorus, Blood 2.3 mg/dL (2.5-4.9); Potassium, Blood 3.8 mmol/L (3.5-5.5); Sodium, Blood 151 mmol/L (136-145)
[2018-12-18 03:40] LABS: BAND PERCENT MAN 7 % (0-8); BASOPHILS PERCENT MAN 0 % (0-2); EOSINOPHILS PERCENT MAN 0 % (0-6); LYMPHOCYTES ABSOLUTE MAN 0.41 K/mm3 (0.84-5.20); LYMPHOCYTES PERCENT MAN 2 % (21-46); MONOCYTES ABSOLUTE MAN 0.62 K/mm3 (0.16-1.47); MONOCYTES PERCENT MAN 3 % (4-13); NEUTROPHILS ABSOLUTE MAN 19.91 K/mm3 (1.96-9.15); SEG NEUTROPHILS PERCENT MAN 88 % (41-73); TOTAL CELLS COUNTED 100
--- NOTE | 2018-12-18 06:24 | NUR ---
END OF SHIFT SUMMARY PT HASN'T SLEPT MUCH AT ALL THIS SHIFT. DOZED OFF ONCE, BUT EASILY WOKE UP UPON ENTERING ROOM. PT HAS REMAINED ON 3L OF OXYGEN VIA NC WITH BIOX >91%. PT HAS REMAINED ALERT AND ORIENTED TO SELF AND SITUATION, BUT APPEARS CONFUSED AND FORGETFUL REGARDING TIME/PLACE. LUNG SOUNDS REMAIN CLEAR T/O LEFT LOBES, BUT DIMINISHED TO RIGHT LOBES. PT REMAINS IN SINUS TACH WITH HR 100-115'S. PT CONTINUES WITH A VERY WEAK COUGH; UNABLE TO CLEAR SECRETIONS; PT HAS BEEN ENCOURAGED TO CONTINUE DEEP BREATHING AND COUGHING TO GET STRONGER. ATTEMPTED DEEP SUBGLOTTIC SUCTIONING WITH NO SUCCESS; PT NOTED TO HAVE AN ABSENT GAG REFLEX WELL. PT EDUCATED REGARDING NPO STATUS AND SWALLOW EVALUATION IN ORDER TO PREVENT ASPIRATION; PT APPEARED AGITATED AT FIRST, BUT THEN BECAME MORE UNDERSTANDING AND COMPLIED WITH TREATMENT PLAN. FREQUENT ORAL CARE AND MOUTH SWABS GIVEN FOR COMFORT. ABDOMEN REMAINS WITH WOUND VAC THAT IS PATENT AND INTACT. COLOSTOMY HAS NOTED GAS AND A SCANT AMOUNT OF SOFT, FORMED, BROWN STOOL NOTED TO BAG. BOWEL TONES ARE ACTIVE X3 QUADRANTS; ABSENT TO LLQ. PT HAS DENIED PAIN ALL NIGHT. JUST STATES HE IS GENERALLY UNCOMFORTABLE. ENCOURAGED PT TO MOVE ALL EXTREMITIES MUCH HE COULD TOLERATE IN ORDER TO PREVENT FURTHER MUSCLE ATROPHY. PT DEMONSTRATED UNDERSTANDING AND ASSISTED WITH ACTIVE ROM. CENTRAL LINE REMAINS IN PLACE TO RIGHT IJ. D5W INFUSING AT 75MLS/HR. TPN INFUSING AT GOAL OF 55MLS/HR. PT CONTINUES ON VANCO AND ZOSYN. JEAN CATHETER REMAINS PATENT AND DRAINING TO GRAVITY; CLEAR YELLOW URINE. EMELYN HOSE REMAIN IN PLACE TO BLE'S SCD'S WERE INDENTING PT'S LEGS D/T SWELLING. PT IS ALSO RECEIVING LOVENOX INJECTIONS. EDEMA IS IMPROVING, BUT STILL PRESENT. PT HAS BEEN REPOSITIONED FREQUENTLY T/O SHIFT FOR COMFORT. CALL LIGHT WITHIN REACH AND PT ABLE TO DEMONSTRATE HOW TO USE CALL LIGHT EVEN WITH SWELLING TO HANDS. WILL CONTINUE TO MONITOR UNTIL REPORT IS HANDED OFF TO ONCOMING RN.
--- NOTE | 2018-12-18 07:15 | NUR ---
BEGINNING OF SHIFT Assumed care at 0700. Bedside report recieved from Suze BEASLEY. Pt A&O x 2. Weak cough. Weak gag reflex. Sinus tachycardia per monitor. Pt strict NPO, until evaluated by ST. NG tube to LIS, bilious drainage noted. Colostomy noted to LUQ, small amount of liquid brown drainage in bag. Stoma pink and beefy. Pt on 3 LPM NC, SpO2 94%, RR 20-24. Moist, loose cough, but unproductive. Pt assisted to use flutter valve. Sargent catheter in place. IV fluids and TPN infusing to central line in right IJ. No family at bedside at this time.
--- NOTE | 2018-12-18 07:40 | NUR ---
DR JOSEPH AT BEDSIDE Plan of care discussed with provider. Provider states potential for pt to transfer to PCU this afternoon.
--- NOTE | 2018-12-18 09:02 | NUR ---
DR HALE / SPEECH THERAPY Dr Hale at bedside 0840. Plan of care discussed. Notified provider that pt had output from ostomy. Notified provider that pt is strict NPO due to suspected aspiration. Orders received from Dr Hale to clamp NG tube. Provider states he will round on pt later today. Potential for starting tube feeding today. Tina from speech therapy rounded on pt. States modified barium swallow should be performed if silent aspiration is suspected. States this cannot happen today but may be done tommorow. Plan for pt to remain strict NPO until tomorrow.
--- NOTE | 2018-12-18 09:15 | NUR ---
NT SUCTIONING RT Pack at bedside.
--- NOTE | 2018-12-18 11:00 | NUR ---
DR DAY IN TO SEE PT Plan of care discussed with provider. States plan to obtain chest X-Ray.
[2018-12-18 11:57] LABS: Albumin, Blood 1.5 g/dL (3.4-5.0); Anion Gap 1 mmol/L (6-16); Blood Urea Nitrogen 18 mg/dL (8-24); CO2, Blood 33 mmol/L (21-32); Calcium, Blood 7.6 mg/dL (8.5-10.1); Chloride, Blood 112 mmol/L (98-108); Creatinine, Blood 0.64 mg/dL (0.60-1.20); Glomerular Filtration Rate >60 (60-); Glucose, Blood 185 mg/dL (70-99); Phosphorus, Blood 3.5 mg/dL (2.5-4.9); Potassium, Blood 3.8 mmol/L (3.5-5.5); Sodium, Blood 146 mmol/L (136-145)
--- NOTE | 2018-12-18 12:19 | NUR ---
UPDATE Pt's son and [id number] visiting at this time. Update provided. Pt has had small, brown, bowel movement into ostomy. Moderate amount of gas noted in bag.
--- NOTE | 2018-12-18 13:30 | NUR ---
NT SUCTIONING Pt on 3 LPM NC, intercostal retractions and accessory muscle use noted. SpO2 86-87%. Loud rattle noted in airway with inhalation and exhalation. This RN worked with pt to use flutter valve and cough. Cough extremely weak. Unproductive. No improvement in O2 saturations. RT Sirena at bedside. Pt required titration of O2 up to 15 LPM. SpO2 92-93%. NT suctioning performed by RT Sirena. Copious amounts of thick yellow/red sputum produced. After NT suctioning, pt nodded head "yes" when asked if it was easier to breathe. Intercostal retractions and accessory muscle use were no longer present. O2 able to titrate down to 3 LPM NC.
--- NOTE | 2018-12-18 15:01 | NUR ---
Spiritual Care intial note: Mr. Monzon was alone in room and awake. He did not speak to me, but used hand gestures. He appeared tense and emotionally withdrawn. He did allow me to prayer for him and he held my hand as I did so. He looked me in the eyes at one point and seemed tearful. Still, he did not want to talk to me. He denied pain. I will continue to round on Mr. Monzon and his family in coming days.
[2018-12-18 15:48] LABS: Vancomycin, Trough 10.8 ug/mL (5.0-10.0)
--- NOTE | 2018-12-18 16:01 | NUR ---
CALL PLACED TO DR DAY This RN spoke to Dr Day, to update with urine output after administering lasix. Also notified provider that pt required another round of NT suctioning due to low SpO2, with O2 titration up to 15 LPM. Provider stated that NPA may be placed and NT suctioning can continue as needed.
--- NOTE | 2018-12-18 18:08 | NUR ---
SUMMARY Pt remains A&O x 2. Pt did not get OOB this shift. Pt deconditioned, states he is unable to hold lemon swabs to his mouth. Requires assistance for this and using flutter valve. Gag reflex difficult to stimulate. Pt has very weak cough. This RN worked with pt to use flutter valve and cough. Pt was able to produce sputum with flutter valve and coughing only one time today. NT suctioning required 4 times this shift to keep pt's airway free of secretions. Pt tolerates NT suctioning well and cooperates with staff. Pt states ease of breathing after NT suctioning. Decreases in SpO2 respond well to NT suctioning. NT suctioning results in copious amounts of yellow, blood tinged sputum. Pt remains on 3 LPM NC. Pt remains strict NPO. NG tube clamped from 0900 until 1730. 10 mL of bilious residual measured. Pt reconnected to LIS per and to stay on LIS overnight, per order from Dr Handy. Pt has had 100 mL soft, brown output from colostomy. Abd soft to paplation. BT present in all quadrants. Rectal temp probe remains in place. Sargent catheter remains in place for strict measurement of fluid intake and output. Will continue to closely monitor until care handoff and bedside report with oncoming RN.
--- NOTE | 2018-12-18 19:52 | NUR ---
ASSUMED PT CARE BEDSIDE REPORT GIVEN BY GALE BRANCH. PT SITTING UPRIGHT IN BED WITH OXYGEN IN MOUTH AT 3L VIA NC; BIOX 94%. PT STATED HE PREFERRED NC IN MOUTH RATHER THAN NARE. ALERT AND FOLLOWING COMMANDS APPROPRIATELY; HOWEVER, REMAINS CONFUSED/FORGETFUL OF TIME/PLACE. PT REMAINS WITH FLAT AFFECT, BUT IS APPROPRIATE WITH CARES AND COOPERATIVE. AUDIBLE RATTLE NOTED DURING INSPIRATION AND EXPIRATION; PT IS UNABLE TO CLEAR SECRETIONS. VERY WEAK COUGH WITH HARD TO STIMULATE GAG REFLEXES. PT REMAINS STRICT NPO D/T SILENT ASPIRATION; MOUTH SWABS AND ORAL CARE OFFERED AND PERFORMED. LUNG SOUNDS ARE COARSE/CONGESTED T/O ALL LOBES; MORE DIMINISHED T/O RIGHT SIDE. HR 100-110'S; SINUS TACHYCARDIA. BLOOD PRESSURES STABLE AT THIS TIME; SBP 140'S. ABDOMEN REMAINS FIRM UPON PALPATION WITH NO NOTED TENDERNESS; WOUND VAC PATENT AND INTACT. GAS NOTED TO COLOSTOMY WITH NO OTHER OUTPUT; STOMA IS PINK AND MOIST. JEAN CATHETER IS PATENT AND DRAINING CLEAR YELLOW URINE TO GRAVITY. SCD'S REMOVED D/T LEAVING INDENTATIONS IN PT'S LEGS; EMELYN HOSE REMAIN IN PLACE PER DR. WAN ORDERS; PT IS ALSO RECEIVING LOVENOX FOR DVT PROPHYLAXIS. PT STATES HE IS COMFORTABLE AT THIS TIME AND DECLINED REPOSITIONING. CALL LIGHT LEFT WITHIN REACH; ABLE TO MAKE NEEDS KNOWN.
[2018-12-19 03:17] LABS: BASOPHILS ABSOLUTE AUTO 0.01 K/mm3 (0.00-0.23); BASOPHILS PERCENT AUTO 0 % (0-2); EOSINOPHILS ABSOLUTE AUTO 0.01 K/mm3 (0.00-0.68); EOSINOPHILS PERCENT AUTO 0 % (0-6); Hematocrit 25.5 % (37.0-53.0); IMMATURE GRAN ABSOLUTE AUTO 0.13 K/mm3 (0.00-0.10); IMMATURE GRAN PERCENT AUTO 1 % (0-1); LYMPHOCYTES ABSOLUTE AUTO 0.24 K/mm3 (0.84-5.20); LYMPHOCYTES PERCENT AUTO 1 % (21-46); MONOCYTES ABSOLUTE AUTO 0.43 K/mm3 (0.16-1.47); MONOCYTES PERCENT AUTO 2 % (4-13); Mean Corpuscular HGB 33.1 pg (26.0-34.0); Mean Corpuscular HGB Conc 31.4 g/dL (31.5-36.5); Mean Corpuscular Volume 105 fL (80-100); Mean Platelet Volume 10.5 fL (9.1-12.4); NEUTROPHILS ABSOLUTE AUTO 19.57 K/mm3 (1.96-9.15); NEUTROPHILS PERCENT AUTO 96 % (41-73); Platelet Count 93 K/mm3 (150-400); RDW Coefficient Variation 16.2 % (11.7-14.2); RDW Standard Deviation 63.3 fL (35.1-46.3); Red Blood Cell Count 2.42 M/mm3 (4.30-5.90); White Blood Cell Count 20.39 K/mm3 (4.00-11.30)
--- NOTE | 2018-12-19 04:18 | NUR ---
END OF SHIFT SUMMARY PT RESTED MORE TONIGHT AND APPEARS MORE ALERT AND ORIENTED. HAD CONVERSATION REGARDING PT'S CHEMOTHERAPY TREATMENTS IN WHICH PT STATES HE IS DUE TO HAVE ONE TODAY AND THAT HE HAS ONE EVERY THREE WEEKS. PT STATES HE FOLLOWS UP WITH DR. ENRIQUEZ REGULARLY, WELL WITH A VOIP TECHNICIAN FOR HIS DIET. APPROACHED PT IN REGARDS TO HOW HE IS COPING WITH HIS ILLNESS AND IF HE HAS BEEN EXPERIENCING ANY DEPRESSION. PT DENIES ANY DEPRESSION AND STATES HE HAS BEEN DEALING WITH IT THE BEST HE CAN BE. PT APPEARS TO BE IN BETTER SPIRITS AND ABLE TO COMMUNICATE HIS NEEDS VERY WELL DESPITE HIS PARALYZED LEFT SIDED VOCAL CORDS R/T HX OF THYROIDECTOMY (PER PT). PT REQUIRED ONE ROUND OF NT SUCTIONING DUE TO OXYGEN SATURATIONS DECREASING TO 86% ON 5L HI FLOW. RT SUCTIONED MODERATE AMOUNTS OF THICK YELLOW AND BLOODY TINGED SECRETIONS. PT TOLERATED FAIRLY AND LUNG SOUNDS CLEARED AFTERWARD; STILL DIMINISHED T/O RIGHT LOBES. PT DECREASED BACK TO 3L VIA NC VIA NARES INSTEAD OF MOUTH. COUGH CONTINUES TO BE WEAK, BUT OVERALL IS GETTING STRONGER. GAG REFLEX IS ALSO WEAK, BUT GETTING EASIER TO STIMULATE. ENCOURAGING PT TO ACTIVELY PARTICIPATE IN ROM AND MOVE EXTREMITIES MUCH POSSIBLE TO GET STRONGER; VERY COOPERATIVE WITH CARES. COLOSTOMY REMAINS WITH MODERATE OUTPUT OF DARK BROWN PASTY/LIQUID TO POUCH; STOMA REMAINS PINK AND MOIST. JEAN CATHETER PATENT AND DRAINING CLEAR YELLOW URINE TO GRAVITY. NG REMAINS HOOKED TO LOW INTERMITTENT SUCTION WITH GREEN BILE NOTED TO CANISTER. CALL LIGHT IS WITHIN REACH AND PT IS ABLE TO MAKE HIS NEEDS KNOWN.
--- NOTE | 2018-12-19 07:15 | NUR ---
BEGINNING OF SHIFT Assumed care at 0700. Bedside report received from Suze BEASLEY. Pt in room, talking with spouse at time of report. Pt speaking in 4-5 word sentences. Hoarse voice. Pt states his mouth is dry. Pt educated that oral care will be provided. Pt on 3 LPM NC. SpO2 90% or greater. No audible rattle noted with inhalation or exhalation. Sinus tachycardia per monitor.
--- NOTE | 2018-12-19 09:00 | NUR ---
UPDATE Pt has not required NT suctioning yet this shift. Respirations even and unlabored. Plan of care discussed with patient and with speech therapist, Tina, and Dr Badillo. No barium swallow to be performed today, despite improvement in pt's respiratory status. Pt agreeable to this plan, stating he does not want to risk aspirating during procedure. Pt agreeable to remaining strict NPO for another day. Per ST, pt is okay to have lemon glycerin swabs if oral care is perfored prior to giving swabs.
--- NOTE | 2018-12-19 10:00 | NUR ---
PCU STATUS Pt worked with physical therapy to sit up in chair. Pt tolerated activity well with no O2 desaturation noted. Pt okay to transfer to PCU per Dr Badillo. Plan to start trickle feeds today. Cadastral Surveyor consulted.
[2018-12-19 10:28] LABS: Albumin, Blood 1.6 g/dL (3.4-5.0); Anion Gap 7 mmol/L (6-16); Blood Urea Nitrogen 21 mg/dL (8-24); Bun/Creatinine Ratio 35.8 (12.0-20.0); CO2, Blood 32 mmol/L (21-32); Calcium, Blood 7.4 mg/dL (8.5-10.1); Chloride, Blood 113 mmol/L (98-108); Creatinine, Blood 0.59 mg/dL (0.60-1.20); Glomerular Filtration Rate >60 (60-); Glucose, Blood 179 mg/dL (70-99); Phosphorus, Blood 2.8 mg/dL (2.5-4.9); Potassium, Blood 3.3 mmol/L (3.5-5.5); Sodium, Blood 152 mmol/L (136-145)
--- NOTE | 2018-12-19 11:42 | NUR ---
Patient is sitting on a chair and alert. Patient is quiet and answers questions in short sentences and avoids eye contact. When I ask patient about his lack of engagement patient states that he is conserving energy for family. Patient's spouse, Nila, in an earlier conversation, tells me that he won't talk with her. This would be less of a concern if patient was a quiet reflective person, but I have know patient for years and he has always been the kind of person that you can never get a word in because he talks so much. I ask patient if he is angry but he does not answer. I ask patient about how he is doing emotionally and spiritually and he states that he is fine. Then after a long pause he says, "Manolo already went through all this and so to say I feel anythig different is to have no parish about what He did." I speak to patient about Manolo wanting to be with you in any emotion and that our emotions do not signify a lack of parish. Patient returns to staring forward and avoiding eye contact. Patient states with an angry look that he can't say "no" to prayer, when I ask if I could pray for him. I tell him I do not have to pray it would only be if he saw it as a benefit. Patient says, "[place]." I pray. Patient stares at the wall. I will continue to be available to patient and family.
--- NOTE | 2018-12-19 12:30 | NUR ---
CARE PROVIDED Pt assisted to stand using walker and gait belt. Rectal probe removed. Sargent catheter removed. Bath given while pt in chair. Pt tolerated activity well.
--- NOTE | 2018-12-19 13:27 | NUR ---
DR HALE IN TO SEE PT Plan of care discussed. Provider aware of colostomy output. Provider aware of plan to start tube feedings today. No new orders received. Provider states he will round on patient again tomorrow.
[2018-12-19 16:10] LABS: Vancomycin, Trough 19.2 ug/mL (5.0-10.0)
--- NOTE | 2018-12-19 18:07 | NUR ---
SUMMARY Pt A&O x 3. Flat affect, withdrawn. Prefers to communicate with hand gestures instead of speaking to staff. Pt on 2 LPM NC. SpO2 90% or greater. Pt did not require NT suctioning today. IS and flutter valve at bedside. This RN assisted pt to use these devices. Pt's cough remains weak, however he was able to produce sputum 3 times. Pt self-suctions produced secretions. Audibly, pt still has a large amount of secretions in his airway- cannot be retreived with yankauer. Pt declines NT suctioning at this time, however. Respirations even and unlabored. Sinus tachycardia per heart monitor. BP stable. Tube feeds initiated per orders. Because tube feed is at low rate, TPN remains infusing through central line. Pt had approx 100 mL of liquid brown output from colostomy. Appliance C/D/I. Rectal probe removed this shift. Sargent catheter removed this shift. Pt has voided into urinal twice since removal. Bed in lowest position. Call light in reach. Pt utilizes call light appropriately. Pt denies need at this time. Will continue to closely monitor until care handoff and bedside report with oncoming RN.
--- NOTE | 2018-12-19 18:17 | NUR ---
Pt visit this evening. Pt is resting in bed and struggles with verbal responses. Pt is able to answer yes or no questions by shaking his head. Pt denies pain and anxiety at this time. Pt expresses no concerns at this time. Inquired if Pt needed anything and Pt ravin need at this time. Pt agreeable for continued palliative care visits. Spoke with bedside nurse Cherie and discussed case. Palliative Care will remain available.
--- NOTE | 2018-12-19 19:30 | NUR ---
ASSUME CARE: REPORT RECIEVED FROM SARINA OFF GOING RN. MONITOR INTACT SHOWING SINUS TACH. HEART RATE 110'S. REQUEST REPOSITIONED AND HEAD OF BED HIGHER. PLACED IN SEMI FOWLERS. LUNGS SOUNDS COARSE WITH OCC MOIST NONPRODUCTIVE COUGH. REFUSING NT SUCTIONING. ABD OSTOMEY DEVICE INTACT PATENT WITH BROWN LIQUID RETURN WOUND VAC INTACT TUBE FEEDING AT 10ML/HR PER [place] PUMP LESS THAN 3ML RESIDUAL REFED. VOIDS CLEVE URINE PER URINAL. FAMILY AT BEDSIDE ATTENTIVE TO NEEDS CARES. SPEAKS IN SOFT VOICE SUPPLEMENTED WITH GESTURES. EMELYN HOSE TO LOWER EXTREMITIES. CONTINUE TO MONITOR AND REPORT CHANGE IN PATIENT CONDITION. PATIENT AND FAMILY INFORMED OF TRANSFER TO ICU 6. TRANSFER COMPLETED WITHOUT DIFFICULTY.
--- NOTE | 2018-12-19 19:45 | NUR ---
UPDATE This RN performed NT suctioning as pt was progressively working harder to breathe. SpO2 85-89%. Large amount of thick, green sputum obtained. Respirations even and unlabored afterwards, SpO2 94% with 2 LPM NC. Plan for pt to move to ICU 6, but remain PCU status. Pt's at bedside, aware of new assignment.
--- NOTE | 2018-12-19 20:40 | NUR ---
RT NOTIFIED OF DECREASING SATURATIONS O2 INCREASED TO 5L/MIN WITH SPO2 DECREASING TO 86-88% NT SX IWTH THICK YELLOW TRAORE SECREATIONS. SPO2 INCREASED TO 96-98%. CONTINUE TO MONITOR AND REPORT CHANGE IN PATIENT CONDITION
--- NOTE | 2018-12-20 03:16 | NUR ---
ASSUME CARE REPORT RECIEVED FROM LINDA OFF GOING RN. MONITOR INTACT SHOWING SINUS PAYAM HEART RATE 50'S-60'S. STATES CHEST PAIN 04/27. C/O HEADACHE 'migrine" 05/28. TR BAND SITE CLEAR NO BRUISING REDNESS OF HEMATOMA. FAMILY IN ROOM SPENDING NOC. ATTENTIVE TO NEEDS CARESS. VOIDS PER URINAL. RESTS QUIETLY WHEN UNDISTURBED. CONTINUE TO MONITOR AND REPORT CHANGE IN PATIENT CONDITION.
[2018-12-20 04:16] LABS: BASOPHILS ABSOLUTE AUTO 0.02 K/mm3 (0.00-0.23); BASOPHILS PERCENT AUTO 0 % (0-2); EOSINOPHILS PERCENT AUTO 0 % (0-6); Hematocrit 25.4 % (37.0-53.0); IMMATURE GRAN ABSOLUTE AUTO 0.15 K/mm3 (0.00-0.10); IMMATURE GRAN PERCENT AUTO 1 % (0-1); LYMPHOCYTES ABSOLUTE AUTO 0.31 K/mm3 (0.84-5.20); LYMPHOCYTES PERCENT AUTO 2 % (21-46); MONOCYTES ABSOLUTE AUTO 0.48 K/mm3 (0.16-1.47); MONOCYTES PERCENT AUTO 3 % (4-13); Mean Corpuscular HGB 33.1 pg (26.0-34.0); Mean Corpuscular HGB Conc 31.5 g/dL (31.5-36.5); Mean Corpuscular Volume 105 fL (80-100); Mean Platelet Volume 11.2 fL (9.1-12.4); NEUTROPHILS ABSOLUTE AUTO 17.86 K/mm3 (1.96-9.15); NEUTROPHILS PERCENT AUTO 95 % (41-73); Platelet Count 79 K/mm3 (150-400); RDW Coefficient Variation 15.9 % (11.7-14.2); Red Blood Cell Count 2.42 M/mm3 (4.30-5.90); White Blood Cell Count 18.82 K/mm3 (4.00-11.30)
[2018-12-20 04:31] LABS: Anion Gap 5 mmol/L (6-16); Blood Urea Nitrogen 20 mg/dL (8-24); Bun/Creatinine Ratio 34.5 (12.0-20.0); CO2, Blood 33 mmol/L (21-32); Calcium, Blood 7.5 mg/dL (8.5-10.1); Chloride, Blood 110 mmol/L (98-108); Creatinine, Blood 0.58 mg/dL (0.60-1.20); Glomerular Filtration Rate >60 (60-); Glucose, Blood 173 mg/dL (70-99); Phosphorus, Blood 2.5 mg/dL (2.5-4.9); Potassium, Blood 3.2 mmol/L (3.5-5.5); Sodium, Blood 148 mmol/L (136-145)
--- NOTE | 2018-12-20 06:16 | NUR ---
SHIFT SUMMARY: RESTS QUIETLY WHEN UNDISTURBED. MONITOR INTACT SHOWING SINUS TACH. HEART RATE 100'S-110'S. LUNG SOUNDS COARSE RHONCHI WITH DECREASED SOUNDS IN THE BASES. OCC MOIST NON PRODUCTIVE COUGH. SX THICK CREAMY SECREATIONS.ABDO MEN SOFT WITH BOWEL SOUNDS. OSTOMY DEVICE INTACT PATENT WITH BROWN LIQUID STOOL WOUND VAC INTACT TO ABDOMEN VOIDS CLEVE URINE PER URINAL. SPEAKS IN SOFT VOICE AND USES GESTURES. EXTREMITIES ELEVATED ON PILLOWS SECONDARY TO GENERALIZED DEPENDENT EDEMA ESPECIALLY TO UPPER EXTREMITIES AND HANDS. CONTINUE TO MONITOR AND REPORT CHANGE IN PATIENT CONDITION.
--- NOTE | 2018-12-20 07:30 | NUR ---
ASSUMED CARE: REPORT RECEIVED FROM LEEANN Forbes RN. ASSUMED CARE OF THIS PT AT APPROX 0700. ON ASSESSMENT, THE PT IS A&O. HE SPEAKS QUIETLY & IN HUSHED/COARSE TONES BUT IS ABLE TO COMMUNICATE HIS NEEDS WELL. PT CURRENTLY ON 5L NC W/ O2 SATS > 92%. COUGHING & USE OF FLUTTER VALVE / I.S. IS ENCOURAGED THIS AM. PT HAS MOIST COUGH BUT IS UNABLE TO FULLY EXPECTORATE SPUTUM. WOUND VAC TO MIDLINE ABD INCISION IS PATENT, DRESSING IS CDI. COLOSTOMY APPLIANCE IS CDI, MINIMAL AMNT OF BROWN LIQUID STL NOTED IN BAG. STOMA IS PINK & MOIST. TRICKLE TF INFUSING AT 10 ML/HR, MINIMAL RESIDUALS CHARTED. WILL CONTINUE TO MONITOR & UPDATE NEEDED.
--- NOTE | 2018-12-20 08:33 | NUR ---
DR HALE: PROVIDER AT BEDSIDE TO SEE PT. HE STS HE WOULD LIKE TF RATE INCREASED PT DENIES NAUSEA/ GI UPSET. NO OTHER CHANGES AT THIS TIME. WILL CONTINUE TO MONITOR & UPDATE NEEDED.
--- NOTE | 2018-12-20 12:47 | NUR ---
Clinical Visit: Pt is alert, responding appropriately to questions by nodding his head and shaking his head. He denies pain and anxiety at this time. is bedside. She states that the family has been working with pt to get advance directive filled out. They are not finished with it yet. Offered assistance; states that she has a good understanding of the document after palliative education a few days ago. is guarded. She offers no other information and is not engaging in discussion. Instructed to have nurse call palliative if needed to review advance directive again. Spoke to nurse, Antionette. She states that pt is agreeable to a PEG tube placement and she was told by family that pt would like to fight the illness for a while. No other concers.
--- NOTE | 2018-12-20 14:00 | NUR ---
Patient is sitting up in bed and daughter Chrissie and spouse Nila are present. I provided pastoral counselor/art therapist, companionship, a calming presence and prayer. I will continue to remain available to patient and family.
--- NOTE | 2018-12-20 14:49 | NUR ---
TRANSFER TO PCU: ROOM PCU-01 ASSIGNED TO PT. REPORT HAS BEEN GIVEN TO SARINA Vaz RN TO ASSUME CARE. PT TO BE TRANSFERRED OUT BY TORIN BLACKMAN. CHART & ALL BELONGINGS TAKEN OUT W/ PT.
--- NOTE | 2018-12-20 15:56 | NUR ---
ASSUMPTION OF CARE Assumed care of pt upon arrival to PCU 1 from ICU 6 at 1515. Pt on 5 LPM NC. SpO2 93%. No family at bedside. Residual measured from NG tube, 0 mL. Tube feedings restarted per orders. Pt has strong audible rattle with breathing. Pt tachypnic. Mild accessory muscle use noted. This RN performed NT suctioning and obtained a copious amount of thin yellow secretions. Pt tolerated suctioning well. SpO2 currently 96% with [address] per tele, rate 104.
--- NOTE | 2018-12-20 18:39 | NUR ---
SUMMARY Pt has not had any visitors since arrival to unit. This RN in room at 1800, pt tachypnic, RR 36. Minimal accessory muscle use noted. SpO2 85%. NT suctioning performed by this RN. Copious amounts of secretions achieved. No improvement in respiratory rate or quality of respirations noted. NT suctioning performed by devulcanizer charger Anh. More secretions removed. No improvement noted. O2 titrated up to 15 LPM. SpO2 increased to 95% over time span of 5 minutes. O2 titrated down to 10 LPM. SpO2 91-94%. Will continue to assess. No additional changes since arrival to unit.
--- NOTE | 2018-12-20 22:49 | NUR ---
ASSUMED CARE OF PATIENT AT APPROXIMATELY 1905 FROM SARINA Cardozo RN. PATIENT ALERT AND ORIENTED TO FAMILY , SELF AND FOLLOWING DIRECTIONS. PATIENT SPEAKS IN LOW VOICE; POINTS TO THINGS MOST OF TIME. PATIENT WEAK; REPORTED ONE ASSIST OUT OF BED W/ FWW AND GAIT BELT; Q2H TURNS WHEN IN BED. PATIENT DENIES PAIN, NUMBNESS, TINGLING, DIZZINESS OR NAUSEA. ST ON TELE; OXYGEN SATURATION ABOVE 90% ON 9-10LPM VIA HF NC; PATIENT HAS COARSE L/S; RATTLE WHEN BREATHING; UNABLE TO COUGH UP SECRETIONS; REFUING NT SUCTIONING. PATIENT HAS COLOSTOMY WITH BROWN LOOSE LIQUID OUTPUT; STOMA PINK MOIST. WOUND VAC TO MIDLINE; CENTRAL LINE WITH CLINIMX, D5 AND IV ABX INFUSING. PATIENT VOIDS INTO URINAL IN BED WITH ONE ASSIST AT TIMES. TUBE FEEDING INTO NG AT GOAL RATE OF 20ML/HR PER ORDER. PATIENT STRICT NPO. PATIENT CURRENTLY RESTING IN BED; CALL LIGHT IN REACH; BED IN LOWEST POSISTION WILL CONTINUE TO MONITOR AND ASSESS UNTIL END OF SHIFT.
[2018-12-21 05:40] LABS: BASOPHILS ABSOLUTE AUTO 0.01 K/mm3 (0.00-0.23); BASOPHILS PERCENT AUTO 0 % (0-2); EOSINOPHILS PERCENT AUTO 0 % (0-6); Hematocrit 25.5 % (37.0-53.0); Hemoglobin 8.2 g/dL (13.5-17.5); IMMATURE GRAN ABSOLUTE AUTO 0.18 K/mm3 (0.00-0.10); IMMATURE GRAN PERCENT AUTO 1 % (0-1); LYMPHOCYTES ABSOLUTE AUTO 0.33 K/mm3 (0.84-5.20); LYMPHOCYTES PERCENT AUTO 2 % (21-46); MONOCYTES ABSOLUTE AUTO 0.44 K/mm3 (0.16-1.47); MONOCYTES PERCENT AUTO 3 % (4-13); Mean Corpuscular HGB 33.6 pg (26.0-34.0); Mean Corpuscular HGB Conc 32.2 g/dL (31.5-36.5); Mean Corpuscular Volume 105 fL (80-100); Mean Platelet Volume 11.7 fL (9.1-12.4); NEUTROPHILS PERCENT AUTO 94 % (41-73); Platelet Count 67 K/mm3 (150-400); RDW Coefficient Variation 15.6 % (11.7-14.2); Red Blood Cell Count 2.44 M/mm3 (4.30-5.90); White Blood Cell Count 15.36 K/mm3 (4.00-11.30)
[2018-12-21 06:02] LABS: Alanine Aminotransfer (ALT/SGP 56 U/L (12-78); Albumin, Blood 1.7 g/dL (3.4-5.0); Albumin/Globulin Ratio 0.4 (0.8-1.8); Alk Phos 112 U/L (50-136); Anion Gap 5 mmol/L (6-16); Aspartate Aminotrans (AST/SGOT 55 U/L (12-37); Bilirubin, Total 0.5 mg/dL (0.1-1.0); Blood Urea Nitrogen 20 mg/dL (8-24); Bun/Creatinine Ratio 39.2 (12.0-20.0); CO2, Blood 33 mmol/L (21-32); Calcium, Blood 7.5 mg/dL (8.5-10.1); Chloride, Blood 110 mmol/L (98-108); Creatinine, Blood 0.51 mg/dL (0.60-1.20); Globulin, Blood 3.8 g/dL (2.2-4.0); Glomerular Filtration Rate >60 (60-); Glucose, Blood 154 mg/dL (70-99); Phosphorus, Blood 2.5 mg/dL (2.5-4.9); Potassium, Blood 3.1 mmol/L (3.5-5.5); Sodium, Blood 148 mmol/L (136-145); Total Protein, Blood 5.5 g/dL (6.4-8.2); Vancomycin, Trough 17.2 ug/mL (5.0-10.0)
--- NOTE | 2018-12-21 06:32 | NUR ---
PATIENT SLEPT ABOUT FOUR HOURS LAST NIGHT; URINATED FREQUENTLY; OXYGEN SATURATION TITRATED DOWN TO 7 CURRENTLY FROM 10. NO OTHER ACUTE CHANGES TO REPORT. WILL CONTINUE TO MONITOR AND ASSESS UNTIL END OF SHIFT.
--- NOTE | 2018-12-21 08:16 | NUR ---
Dr. Handy here; new orders for PICC line and to remove wound vac and change dressing today.
--- NOTE | 2018-12-21 13:14 | NUR ---
PICC line was placed this morning. Throughout the morning, the pt's breathing was tachypneic, mild dyspnea at rest, very wet, coarse cough with occasional success at expectorating some whipple thick secretions and self oral-suctioning. His breathing is better now at 1300 after receiving the IV lasix. He has been up in the chair and up to the bedside commode twice in the last hour or so.
--- NOTE | 2018-12-21 15:35 | NUR ---
Dave sat up in the chair for a total of 2.5 hours until he worked with physical therapist, and then he was assisted back into bed. He appears to be breathing better this afternoon, respirations are down to 20/min and only requiring 5 l/min of oxygen to keep spo2 95% at this time. Does not appear to be as dyspneic as this morning. He still has a very frequent, very coarse moist sounding cough.
--- NOTE | 2018-12-21 16:53 | NUR ---
review of patient with nursing. family in late in the day with grandchild will return pt had a lot of care today and was having family time. Will encourage to fill finish directives and therputic time with family.
--- NOTE | 2018-12-21 18:06 | NUR ---
The pt developed dyspnea and hypoxia this evening. Respiratory therapist did deep suctioning, and the pt has been breathing much better, without the audible coarse sounds, and spo2 94% on 8 l/min. At this time, oxygen was turned down to 7 l/min. He is sitting up in bed, awake, watching TV, respiratory rate and effort are 22/min, unlabored, no use of accessory muscles.
--- NOTE | 2018-12-21 20:28 | NUR ---
ASSUMED CARE OF PATIENT AT APPROXIMATELY 1900 FROM LEORA Cardozo RN. PATIENT ALERT AND ORIENTED TO FAMILY, SELF AND FOLLOWING DIRECTIONS. PATIENT SPEAKS IN LOW VOICE; POINTS TO THINGS MOST OF TIME. PATIENT WEAK; REPORTED ONE ASSIST OUT OF BED W/ FWW AND GAIT BELT; Q2H TURNS WHEN IN BED. PATIENT DENIES PAIN, NUMBNESS, TINGLING, DIZZINESS OR NAUSEA. ST ON TELE; OXYGEN SATURATION ABOVE 90% ON 10LPM VIA HF NC; OXYGEN NEEDS INCREASE WITH MOVEMENT; PATIENT HAS COARSE L/S; PATIENT COUGHING UP SECRETIONS AT TIMES. PATIENT HAS COLOSTOMY WITH BROWN LOOSE LIQUID OUTPUT; STOMA PINK MOIST. WOUND VAC REMOVED TODAY; MAX ABSORB DRESSING PLACED. NEW PICC LINE TODAY INFUSING CLINIMX, D5 AND IV ABX INFUSING. PATIENT VOIDS INTO URINAL IN BED WITH ONE ASSIST AT TIMES. TUBE FEEDING. CHANGED TO JEVITY TODAY, INTO NG AT GOAL RATE OF 20ML/HR PER ORDER. PATIENT STRICT NPO. PATIENT CURRENTLY RESTING IN BED; CALL LIGHT IN REACH; BED IN LOWEST POSISTION WILL CONTINUE TO MONITOR AND ASSESS UNTIL END OF SHIFT.
[2018-12-22 04:55] LABS: Hematocrit 24.5 % (37.0-53.0); Hemoglobin 7.7 g/dL (13.5-17.5); Mean Corpuscular HGB 32.9 pg (26.0-34.0); Mean Corpuscular HGB Conc 31.4 g/dL (31.5-36.5); Mean Corpuscular Volume 105 fL (80-100); Platelet Count 63 K/mm3 (150-400); RDW Coefficient Variation 15.6 % (11.7-14.2); RDW Standard Deviation 59.7 fL (35.1-46.3); Red Blood Cell Count 2.34 M/mm3 (4.30-5.90); White Blood Cell Count 11.56 K/mm3 (4.00-11.30)
[2018-12-22 05:11] LABS: Alanine Aminotransfer (ALT/SGP 62 U/L (12-78); Albumin, Blood 1.7 g/dL (3.4-5.0); Albumin/Globulin Ratio 0.5 (0.8-1.8); Alk Phos 113 U/L (50-136); Anion Gap 4 mmol/L (6-16); Aspartate Aminotrans (AST/SGOT 33 U/L (12-37); Bilirubin, Total 0.4 mg/dL (0.1-1.0); Blood Urea Nitrogen 20 mg/dL (8-24); Bun/Creatinine Ratio 37.6 (12.0-20.0); CO2, Blood 35 mmol/L (21-32); Calcium, Blood 7.5 mg/dL (8.5-10.1); Chloride, Blood 111 mmol/L (98-108); Creatinine, Blood 0.53 mg/dL (0.60-1.20); Globulin, Blood 3.6 g/dL (2.2-4.0); Glomerular Filtration Rate >60 (60-); Glucose, Blood 169 mg/dL (70-99); Sodium, Blood 150 mmol/L (136-145); Total Protein, Blood 5.3 g/dL (6.4-8.2)
[2018-12-22 05:21] LABS: BAND PERCENT MAN 14 % (0-8); BASOPHILS PERCENT MAN 0 % (0-2); EOSINOPHILS PERCENT MAN 0 % (0-6); MONOCYTES ABSOLUTE MAN 0.34 K/mm3 (0.16-1.47); MONOCYTES PERCENT MAN 3 % (4-13); NEUTROPHILS ABSOLUTE MAN 11.21 K/mm3 (1.96-9.15); SEG NEUTROPHILS PERCENT MAN 83 % (41-73); TOTAL CELLS COUNTED 100
--- NOTE | 2018-12-22 06:02 | NUR ---
PATIENT SLEPT ABOUT FOUR HOURS; FOAM APPLIED TO MATTRESS; PATIENT REPORTS BEING MORE COMFORTABLE. VSS. OXYGEN TITRATED DOWN TO 7; NO OTHER ACUTE CHANGES TO REPORT. WILL CONTINUE TO MONITOR AND ASSESS UNTIL END OF SHIFT.
--- NOTE | 2018-12-22 08:08 | NUR ---
Pt was repositioned in bed but without finding comfort. He seems very frustrated. Assisted to recliner chair, which finally gave him some comfort. Denies pain, states just can't get comfortable. Spo2 was dropping to 87% while lying in bed, oxygen delivery increased to 8 l/min during the activity of standing and sitting inchair. AT this time he is on 5 l/min, spo2 is 92%. Frequent very moist, coarse sounding cough and he is only able to actually expectorate very infrequently. Refusing deep suctioning this morning. He appears more comfortable now that he is sitting inthe chair.
--- NOTE | 2018-12-22 08:46 | NUR ---
Dave appears to be sleeping comfortably in the recliner chair at this time.
--- NOTE | 2018-12-22 09:53 | NUR ---
Assisted back to bed at his request since he said that his bottom was sore after being up in the recliner. Egg crate mattress is in use on the bed. SCDs applied per orders. spo2 90% on 7 l/min n.c. delivery.
--- NOTE | 2018-12-22 10:03 | NUR ---
Dressing to left side of neck was changed. No active bleeding or other drainage. No redness, no swelling. vaseline gauze and gauze dressing removed, replaced with antibiotic ointment and large bandaid.
--- NOTE | 2018-12-22 11:24 | NUR ---
The pt has been very uncomfortable all morning. C/O generalized discomfort, very frequently requesting repostioning, but his discomfort is ongoing. He has refused pain medication until this point. He did at first decline it, but then accepted as I said that it might help him with the general discomfort. Called to Palliative care , who is here to see him now. He refused when I asked if there was anyone we could call to come and sit with him, like family or friends.
--- NOTE | 2018-12-22 11:43 | NUR ---
Clinical Visit: Pt struggling for air, respirations over 30 per min; open mouth breathing with canula. He appears very uncomfortable. Explained hospice and comfort care, as he has made statements to Elodia today, such as "I just want to ." I am not getting verbal answers from him at this time. Series of yes/no questions for pt, as he is not capable of answering in sentences, it appears. He is nodding and shaking his head, to answers and using hand gestures. I was not getting concrete answers from him on some questions. Elodia, nurse, adjusted the canula to his nose instead of his mouth and he was able to give very short answers. He indicates that he would like to be taken off of tubes and be comfortable. He states, yes, he would like to wait for his to get here before that happens. Call placed to Nila, his . She is currently at work. She works at [employer] and takes care of babies in the nursery. She states that she will be over on her 30 min lunch break around 12:50 and then has to return to work for the rest of the day and return to see him in the evening. Discussed this information with charge nurse, Anh. She will pass information off to Elodia. Discussed concerns about Nila's ability to return to work after this end of life discussion; will be available for formulating a new plan after she arrives on her lunch, and review next steps from there. It is likely that the pt will go on comfort care after end of life discussion with Nila. He appears to be suffering more and looks much worse today than he did when this ad writer visited with him in ICU. Will follow up with pt and family once arrives.
--- NOTE | 2018-12-22 12:07 | NUR ---
Patient is sitting up in bed and alert. Patient struggles to talk. I ask patient how he is holding up and patient shook his and whispered, "Not good." I asked patient if he could elaborate and shook his head and said, "No." I asked if I could pray for him and he nodded affirmingly. I gladly provided prayer. I will continue to remain available to patient and family.
--- NOTE | 2018-12-22 12:23 | NUR ---
the pt earlier had said to me, "I just want to ". Chelsea from Palliative care visited with the patient, and gave him options of comfort care measures. He would like to speak with his about it first, when she comes in. DR. Baker called and said to ask palliative care to put in order set for morphine and ativan for the patient.
--- NOTE | 2018-12-22 12:43 | NUR ---
Appears to be somewhat comfortable, eyes closed, respirations are unlabored.
--- NOTE | 2018-12-22 13:14 | NUR ---
Dr. Handy and Palliative care RN are both in the room with the pt. Dr. Joshi is also here to see the pt. The pt's is at the bedside.
--- NOTE | 2018-12-22 14:00 | NUR ---
The pt is very uncomfortable. Repositioned for comfort, but shortly after he is uncomfortable again. I asked him if he was needing anything for pain, he denied this need. I asked him if he needed anything to help him relax, to have less anxiety, and he said he did. Lowest dose of ordered ativan was given at this time. The pt stated that the room was a good temperature. States that he just wants to sleep. His left, in tears, stating that she would see if she could get the rest of the afternoon off from work and come back. She said that her daughter would be in after 2 pm when she gets off of work. At this time, respiratory rate is 26 /min, 91% spo2 on 11 l/min of oxygen by n.c. delivery. He is resting with his eyes closed, HOB elevated at 40 degrees, and with extra pillows under his shoulders and head. Both arms are elevated on pillows, as well as heels floated off of the bed with pillows.
--- NOTE | 2018-12-22 15:50 | NUR ---
Clinical Visit: Pt much calmer and breathing easier after doses of fentanyl. Dr. Handy is bedside and talking to pt. Discussed pt mood and goals. Reviewed with Dr. Handy and , Nila, the conversations that bedside nurse and palliative care had with pt today. Dr. Handy validates pt's fatigue and difficulty. Pt reports now that he would like to fight, per Dr. Handy's questioning regarding the issue. Discussed with Elodia Camacho, and pt's , Nila. Consider starting antidepressant. Pt's had reported that he has been increasingly depressed and very irritable at home following pt's decision to stop working. Pt now dealing with more medical stress, and has expressed hopelessness today. Elodia voices concern about pt's reluctance to take medications, which has been an issue today. Pt very reluctant to take medications even with severe symptoms. Will remain available.
--- NOTE | 2018-12-22 16:58 | NUR ---
The pt was suctioned by respiratory therapist Judie about an hour ago, and his spo2 is 92% on 11 l/min , respirations mildly labored, but lung sounds are much less coarse than they were before. He has been lethargic since receiving the lowest dose of ativan. and daughter are at the bedside. He has been pulling at lines and tubes in the past 1/2 hour. Repositioned the pt at this time with HOB elevated above 45 degrees, as this seemed to be a more comfortable position for him earlier today. This seemed to lessen his agitation.
--- NOTE | 2018-12-22 18:26 | NUR ---
The pt was attempting to get out of bed unassisted. Alerted by continuous oxymetry which was reading 85%. Pt said that he wanted to get up. He was able to stand, weakly, using the walker to transfer himself with 1 person assist and gait belt, to the recliner chair. He is sitting up now, spo2 improved to 96% with the same oxygen delivery of 11 l/min, upright, in the recliner. His and daughter are now at the bedside. Moist, very coarse cough noted, but pt is unable to bring anything up to his oral cavity for oral suctioning.
--- NOTE | 2018-12-23 02:47 | NUR ---
UPDATE PATIENT SITTING UP IN CHAIR AT THE BEGINNING OF THE SHIFT. PATIENT APPEARED TO BE NAPPING ON AND OFF AT THIS TIME. AND SEVERAL FAMILY MEMBERS PRESENT. AFTER SEVERAL HOURS PATIENT'S FAMILY LEFT FOR THE NIGHT AND PATIENT REQUESTED TO GO BACK TO BED. PATIENT SETTLED BACK IN BED. PATIENT KEPT STATING THAT HE DID NOT HAVE PAIN, PATIENT HELD UP A ZERO AND NODDED HIS HEAD WHEN RN ASKED IF PATIENTS PAIN WAS A ZERO. PATIENT STATES FREQUENTLY THAT HE'S "TIRED OF BEING HERE." AND THAT HE WANTS TO, "GO HOME." PATIENT NODDED HIS HEAD AND STATED "YES" WHEN ASKED IF HE WAS INTERESTED IN HAVING SOMEONE COME SPEAK TO HIM ABOUT HOSPICE CARE TOMORROW. AT ONE POINT PATIENT STATED HE FELT, "UNCOMFORTABLE" OVER AND OVER, PATIENT MEDICATED WITH PAIN MEDICATION PER EMAR, AFTERWARDS PATIENT STATED HE WAS FINE. PATIENT CURRENTLY RESTING IN BED WATCHING TV. PATIENT CURRENTLY DENIES ANY NEEDS. WILL CONTINUE TO MONITOR PATIENT.
[2018-12-23 04:16] LABS: Hematocrit 25.2 % (37.0-53.0); Hemoglobin 7.9 g/dL (13.5-17.5); Mean Corpuscular HGB 33.1 pg (26.0-34.0); Mean Corpuscular HGB Conc 31.3 g/dL (31.5-36.5); Mean Corpuscular Volume 105 fL (80-100); Platelet Count 65 K/mm3 (150-400); RDW Coefficient Variation 15.4 % (11.7-14.2); RDW Standard Deviation 59.8 fL (35.1-46.3); Red Blood Cell Count 2.39 M/mm3 (4.30-5.90); White Blood Cell Count 12.78 K/mm3 (4.00-11.30)
[2018-12-23 04:20] LABS: Mean Platelet Volume 13.2 fL (9.1-12.4)
[2018-12-23 04:32] LABS: Anion Gap 3 mmol/L (6-16); Blood Urea Nitrogen 16 mg/dL (8-24); Bun/Creatinine Ratio 29.7 (12.0-20.0); CO2, Blood 35 mmol/L (21-32); Calcium, Blood 7.6 mg/dL (8.5-10.1); Chloride, Blood 110 mmol/L (98-108); Creatinine, Blood 0.54 mg/dL (0.60-1.20); Glomerular Filtration Rate >60 (60-); Glucose, Blood 164 mg/dL (70-99); Potassium, Blood 3.2 mmol/L (3.5-5.5); Sodium, Blood 148 mmol/L (136-145)
[2018-12-23 04:33] LABS: BAND PERCENT MAN 15 % (0-8); BASOPHILS PERCENT MAN 0 % (0-2); EOSINOPHILS PERCENT MAN 0 % (0-6); MONOCYTES ABSOLUTE MAN 0.12 K/mm3 (0.16-1.47); MONOCYTES PERCENT MAN 1 % (4-13); MYELOCYTE ABSOLUTE MAN 0.12 K/mm3 (0.00-0.00); MYELOCYTE PERCENT MAN 1 % (0-0); NEUTROPHILS ABSOLUTE MAN 12.52 K/mm3 (1.96-9.15); SEG NEUTROPHILS PERCENT MAN 83 % (41-73); TOTAL CELLS COUNTED 100
--- NOTE | 2018-12-23 06:36 | NUR ---
SHIFT SUMMARY PATIENT APPEARED WITHDRAWN THROUGHOUT THE SHIFT WITH A FLAT AFFECT. PATIENT WHISPERS WORDS, NODS HIS HEAD YES/NO, AND GUESTURES TO COMMUNICATE AND IS ABLE TO MAKE HIS NEEDS KNOWN. PATIENT APPEARED TO NAP ON AND OFF BUT WAS AWAKE THROUGHOUT MOST OF THE NIGHT. PATIENT PROVIDED MEDICATION FOR PAIN AND AIR HUNGER PER EMAR. PATIENT ON 12L O2 VIA HIGH FLOW TO KEEP O2 STATES GREATER THAN 92%. IV FLUIDS RUNNING PER ORDERS. PATIENT'S CONTINUOUS FEEDINGS AND FLUSHES RUNNING PER EMAR. PATIENT HAS CONTINUED TO EXPRESS THAT HE WOULD LIKE TO GO HOME. A FAMILY MEMBER ARRIVED AT APPROX 0600 AND IS SITTING WITH PATIENT. BED IN LOW, LOCKED POSITION, CALL LIGHT WITHIN REACH. WILL CONTINUE TO MONITOR PATIENT AND REPORT TO ONCOMING RN.
--- NOTE | 2018-12-23 07:18 | NUR ---
the patient is awake. Per noc shift RN, the pt has been asking repeatedly to have all the lines and tubes taken off. I was told that the pt said he "just wants to go home" and that he was interested in talking about hospice. I called Uzma Allen by [facility] and left a message for her to come. THe daughter Cherie is at the bedside at this time.
--- NOTE | 2018-12-23 10:46 | NUR ---
The pt refused any pain medication, refused roxinol to assist with his breathing. He is presently sitting up in a chair, with several family and friends around him. The pt is very withdrawn, not in any distress, but not interactive with his family except minimally.
--- NOTE | 2018-12-23 11:06 | NUR ---
met with patient and family. Assisted with care. Spoke with patient about the burden of airhunger and ventilation and careful moderate use of medication. It was a blunt conversation he is still stoic and quiet. provided oral care options to give him a choice. plan is to meet with family. he has visitors and from his [employer] they are having a good visit. will meet wtih them after friends leave.
--- NOTE | 2018-12-23 12:07 | NUR ---
The pt is still sitting up in the recliner, appears sleepy, but said that he did not want to get back to bed. His is at the bedside.
--- NOTE | 2018-12-23 13:23 | NUR ---
Assisted back to bed fromt he chair at his request. Pt said that his mouth was dry, so he was given oral care and provided with a swab to hold in his hand in case of dry mouth. His is at the bedside. He is saying that he is hungry and thirsty.
--- NOTE | 2018-12-23 13:47 | NUR ---
Dave is repeatedly asking for something to eat or drink. Oral care was provided again, with swabs, and he is holding the lemon glycerin swab at this time, states he wants to take care of it himself.
--- NOTE | 2018-12-23 15:49 | NUR ---
Met with patient, his and daughter. Pt quiet difficult for him to participate in discussion. Review of pt needs and status of his lungs. Reivewed his assessment and needs. Had direct discussion of pt status and needs of treatment. He is refusing most treatment. Advised pt and family that we need to choose a path and if he does not want treatment we need to provide hospice support. Renforced that we would like to provide comprehensive care to the patient and family. Review of suffering and air hunger and ventilatory stress. Review of what hospice can offer and focused on offering him control of his process and plan of care. Daughter stated they have spoke of hospice before. They are unsure of being able to manage at home due to their jobs. Review of placement. The have a strong community and [employer]. Sugested the speak with family friends and [employer] and see if they can manage at home. states they have not had an end of life discussion with him. Reviewed with patient that he has lot of information and interventions need to take his time and speak with family on what he wants. Family has been in and out all day and having discussion.
--- NOTE | 2018-12-23 16:24 | NUR ---
Dave pushed his call light and asked for Marcio to help with his breathing. I asked him if he wanted to have the respiratory therapist give him a deep suctioning, but he refused. His breathing sounds very coarse and his cough is too weak to bring the secretions up to his mouth. He is orally suctioning. He is using the urinal with minimal assistance. Very rarely has used the call light today. This afternoon is verbally interactive and using the call light, this morning he did not.
--- NOTE | 2018-12-23 16:33 | NUR ---
After using the urinal, pt requested a position change. Repositioned to the left side, HOB elevated 45 degrees. He prefers to have the HOB elevated high. He is self suctioning, or attempting to do so, but none of his secretions are high enough in the oral cavity for oral suctioning to reach them. Spo2 87% on 10 l/min; O2 delivery increased to 12 l/min . He was given roxinol at his request as well.
--- NOTE | 2018-12-23 17:45 | NUR ---
About 30 minutes after receiving the roxinol, Dave was still awake but his spo2 was decreasing, and oxygen required increasing to 12 l/min as the spo2 was 87% on 10 l/min. I noted that his secretions were audibly very coarse, and I asked him if it would be ok to call respiratory therapy to suction them out. He did not refuse. Spoke with Sirena Zhang who said she would call Bassam Miguel. I was called into the room by Bassam Miguel as the pt's spo2 droped to 68% during suctioning and despite a 100% non rebreather mask, they were unable to bring it up. Called Dr. Baker and orders were received for a V60 Bipap if the was agreeable to it. Advised by Dr. Baker that the only options really are intubation or comfort care. Janae Howard called Dr. Joshi who said that she had a very clear conversation with Nila, the pt's yesterday, and wanted palliative care RN to make it clear to the pt's that the outcome looks very poor and she recommends comfort care. Uzma Allen was present in the room at that time. I called Nila, the pt's , to advise her of the pt's decline and to ask if she was agreeable to a bipap at this time, which she was. Bipap was placed on the patient and shortly afterwards the family arrived to be with the patient. He is unresponsive at this time, no agitation, no restlessness, tolerating the bipap.
--- NOTE | 2018-12-23 17:52 | NUR ---
called to bedside pt less responsive increased respitory stress this afternoon. family notified, hospitalist and [employer] notified. pt suctioned by RT placed on bipap for comfort. theraputic tiem with family expresses acceptance. they had meaninful conversation today it is their anniversary.
--- NOTE | 2018-12-23 18:16 | NUR ---
family at bedside pt on comfort care. on bipap for comfort review care with nursing.
--- NOTE | 2018-12-23 19:59 | NUR ---
COMFORT CARE ORDERS PER TELEPHONE CALL WITH RENUKA MOSHER RN, ORDER WAS RECEIVED VIA TELEPHONE CALL WITH DR. ALEXIS FOR COMFORT CARE STATUS. ORDER ENTERED BY THIS RN TO UPDATE CHART FOR EXISTING PLAN.
--- NOTE | 2018-12-23 20:45 | NUR ---
UPDATE PATIENT MEDICATED FOR PAIN, AGITATION, AND AIR HUNGER PER EMAR. AND SEVERAL FAMILY MEMBERS PRESENT AT THE BEDSIDE WITH PATIENT. PATIENT CURRENTLY APPEARS TO BE RESTING COMFORTABLY. BIPAP IN PLACE FOR COMFORT. CONDOM CATH IN PLACE FOR COMFORT. FAMILY MEMBERS DENY ANY NEEDS OR QUESTIONS AT THIS TIME. WILL CONTINUE TO MONITOR.
--- NOTE | 2018-12-23 22:00 | NUR ---
UPDATE THE BIPAP ALARMING BROUGHT STAFF INTO THE ROOM, PATIENT APPEARED TO BE AGONAL BREATHING AT THIS TIME. EDUCATION PROVIDED TO FAMILY. FAMILY WAS ABLE TO SIT WITH AND TALK WITH PATIENT FOR SEVERAL MOMENTS. THEN PATIENT APPEARED TO NO LONGER BE BREATHING AND WAS FOUND TO HAVE NO AUIDBLE BRREATH SOUNDS OR HEART SOUNDS AT APPROX 2120. PATIENT'S AND FAMILY PRESENT AT THE BEDSIDE. PATIENT'S FAMILY PROVIDED WITH APPROPRIATE SUPPORT AND EDUCATION AT THIS TIME. CHARGE NURSE YENI COHEN AWARE. FAMILY SPENT SOMETIME WITH PATIENT BEFORE LEAVING. FAMILY STATED THAT THE PATIENT DID NOT HAVE ANY BELONGINGS WITH HIM AT THIS TIME. FAMILY ALSO STATED THAT [facility] WAS THE MORTUARY OF CHOICE. DR MENJIVAR NOTIFIED AT APPROX 2155. [facility] PROVIDED, WAITING ON MORTUARY ARRIVAL. WILL CONTINUE TO MONITOR.
--- NOTE | 2018-12-24 00:47 | NUR ---
FLORENCIO ABURTO FELLOWS FROM [facility] ARRIVED AND ASSUMED CARE OF PATIENT AT APPROX 0012.
--- NOTE | 2018-12-28 10:58 | NUR ---
ASSUME CARE NOTE FROM 12/20/18 AT 0316 INCORRECT WRONG PATIENT.
== END 2018-12-23 21:00 | DRG 853 ==
LOC: ER 09:51 → ICUE 13:42 → ICUW 13:42 → ICUE 12-19 19:40 → PCU 12-20 15:15
PROVIDERS: Emergency Medicine; Family Medicine; Internal Medicine Critical Care Medicine; Surgery; ADMIT Internal Medicine
PROC: B548ZZA Ultrasonography of Superior Vena Cava, Guidance (ICD-10-PCS; 2018-12-15)
PROC: 3E043XZ Introduction of Vasopressor into Central Vein, Percutaneous Approach (ICD-10-PCS; 2018-12-15)
PROC: 0BH17EZ Insertion of Endotracheal Airway into Trachea, Via Natural or Artificial Opening (ICD-10-PCS; 2018-12-15)
PROC: 5A1945Z Respiratory Ventilation, 24-96 Consecutive Hours (ICD-10-PCS; 2018-12-15)
PROC: 0DTN0ZZ Resection of Sigmoid Colon, Open Approach (ICD-10-PCS; principal; 2018-12-15 14:30)
PROC: 0D1M0Z4 Bypass Descending Colon to Cutaneous, Open Approach (ICD-10-PCS; 2018-12-15 14:30)
PROC: 02HV33Z Insertion of Infusion Device into Superior Vena Cava, Percutaneous Approach (ICD-10-PCS; 2018-12-15 14:30)
DX: A40.9 Streptococcal sepsis, unspecified (principal); E43 Unspecified severe protein-calorie malnutrition; K65.0 Generalized (acute) peritonitis; R65.21 Severe sepsis with septic shock; J95.821 Acute postprocedural respiratory failure; K57.20 Diverticulitis of large intestine with perforation and abscess without bleeding; Z68.1 Body mass index [BMI] 19.9 or less, adult; E87.0 Hyperosmolality and hypernatremia; C34.90 Malignant neoplasm of unspecified part of unspecified bronchus or lung; J98.19 Other pulmonary collapse; R64 Cachexia; Z51.5 Encounter for palliative care; Z87.891 Personal history of nicotine dependence; Z85.850 Personal history of malignant neoplasm of thyroid; Z90.09 Acquired absence of other part of head and neck; K66.8 Other specified disorders of peritoneum; J38.00 Paralysis of vocal cords and larynx, unspecified; K63.9 Disease of intestine, unspecified; J44.9 Chronic obstructive pulmonary disease, unspecified; D69.6 Thrombocytopenia, unspecified; R73.9 Hyperglycemia, unspecified; F41.9 Anxiety disorder, unspecified
CPT/HCPCS: 31720; 36415; 36556; 36569; 71045; 74177; 80048; 80053; 80069; 80202; 81001; 82947; 83605; 83735; 83880; 84100; 84478; 85025; 85610; 85730; 86850; 86900; 86901; 87040; 87086; 88307; 92526; 92610; 93005; 93010; 94003; 94640; 94660; 94667; 94762; 96361; 96365-59; 96375; 97110; 97162; 97166; 97530; 97535; 99285-25; C1751; C9113; J0330; J1100; J1170; J1650; J1940; J2060; J2270; J2370; J2405; J2543; J2704; J3010; J3370; J3411; J3475; J3480; J7030; J7040; J7060; J7070; J7120; Q9967